=== PATIENT | female | born 1990 | race Caucasian/White ===

== ENCOUNTER → 2016-08-22 | Outpatient (REF) | payer BC | LOC: M LAB REF 12:29 | PROVIDERS: ATTEND Physician Assistant | DX: J02.9 Acute pharyngitis, unspecified (principal) ==

== ENCOUNTER → 2016-08-24 | Outpatient (CLI) | payer BC | LOC: M WUC 11:32 | PROVIDERS: ATTEND Physician Assistant | DX: J02.9 Acute pharyngitis, unspecified (principal); R53.83 Other fatigue ==

== ENCOUNTER 2016-12-18 17:09 | Emergency (ER) | payer BC, MEDICAID ==
[~2016-12-18] VITALS: Ht 162.6 cm; Wt 56.8 kg
[2016-12-18] MEDS ORDERED: ONDANSETRON 4MG/2ML VIAL (J2405) IV ONE (19:00)
[2016-12-18] MEDS ORDERED: KETOROLAC 30 MG/ML VIAL (J1885) IV ONE (19:00)
[2016-12-18] MEDS ORDERED: NS 1,000 ML IV ONE (19:00)
[2016-12-18 19:26] LABS: BASO # 0.2 K/mm3 (0.0-0.2); BASO % 1.4 % (0.0-1.0); EOS # 0.1 K/mm3 (0.0-0.50); EOS % 0.9 % (0.0-3.0); LARGE UNSTAINED CELL # 0.1 K/mm3 (0.0-0.4); LARGE UNSTAINED CELL % 1.3 % (0.0-4.0); LYMPH # 3.7 K/mm3 (1.5-6.5); LYMPH % 35.1 % (24.0-44.0); MEAN CORPUSCULAR HEMOGLOBIN 31.3 pg (27.0-33.0); MEAN CORPUSCULAR HGB CONC 34.2 g/dl (32.0-36.5); MEAN CORPUSCULAR VOLUME 91.6 fl (80.0-96.0); MONO # 0.5 K/mm3 (0.0-0.8); MONO % 4.8 % (0.0-5.0); NEUTROPHILS # 5.8 K/mm3 (1.8-7.7); NEUTROPHILS % 56.4 % (36.0-66.0); PLATELET COUNT, AUTOMATED 269 k/mm3 (150-450); RED CELL DISTRIBUTION WIDTH 12.3 % (11.5-14.5); WHITE BLOOD COUNT 10.3 K/mm3 (4.0-10.0)
--- NOTE | 2016-12-18 20:20 | REP ---
Pelvic sonogram: History: Right inguinal mass. Right pelvic discomfort. The patient feels a lump in the right lower quadrant. Findings: Transabdominal scanning demonstrates a normal sized uterus with dimensions of 6.0 x 3.3 x 5.0 cm. Endometrial echo is 0.1 cm in thickness and centrally placed. No focal uterine mass is seen. Scanning in the area where the patient feels a lump shows a normal right ovary with dimensions of 2.7 x 1.9 x 2.0 cm. Its Doppler flow is normal with resistive index 0.62. The left ovary is normal as well measuring 3.3 x 2.5 x 2.4 cm. Its Doppler flow is normal with resistive index 0.53. Impression: Normal pelvic sonography. Scanning in the area where the patient feels a lump reveals only normal right ovary. Signed by Ralph Collins MD 12/19/2016 07:54 A
[2016-12-18 20:48] LABS: ANION GAP 4 MEQ/L (8-16); BLOOD UREA NITROGEN 16 MG/DL (7-18); CALCIUM LEVEL 8.6 MG/DL (8.5-10.1); CARBON DIOXIDE LEVEL 27 MEQ/L (21-32); CHLORIDE LEVEL 109 MEQ/L (98-107); CREATININE FOR GFR 0.61 MG/DL (0.55-1.02); GLOMERULAR FILTRATION RATE > 60.0 (>60); GLUCOSE, FASTING 75 MG/DL (70-105); POTASSIUM SERUM 3.6 MEQ/L (3.5-5.1); SODIUM LEVEL 140 MEQ/L (136-145)
[2016-12-18] MEDS ORDERED: GASTROGRAFIN SOLUTION 30ML PO ONE (21:35)
[2016-12-18] MEDS ORDERED: GASTROGRAFIN SOLUTION 30ML (Q9963) PO ONE (22:05)
[2016-12-18] MEDS ORDERED: ISOVUE-370 76% 100ML VIAL (Q9967) As Ordered ONE (22:40)
--- NOTE | 2016-12-18 23:40 | REPUSA ---
CT of the abdomen and pelvis with contrast Clinical statement: Pain. Technique: Multiple axial CT images were obtained from the base of the lungs through the floor of the pelvis utilizing 5 mm axial slices after administration of oral and nonionic intravenous contrast. C oronal and sagittal reconstructions were also obtained. No comparison is available. Findings: Chest: The visualized lung bases are clear. Abdomen: The liver, spleen, pancreas, kidneys, gallbladder, and adrenal glands are unremarkable. The aorta is within normal limits. There is no evidence of abdominal lymphadenopathy or ascites. Pelvis: The bowel is unremarkable, with no obstructive or inflammatory changes. The visualized portio ns of the appendix are unremarkable. The urinary bladder is within normal limits. The other pelvic st ructures appear grossly intact. There is no evidence of pelvic lymphadenopathy or ascites. Bones: There are no suspicious osseous abnormalities seen. Impression: Unremarkable CT examination of the abdomen and pelvis.
[2016-12-19 00:06] VITALS: BP 120/75
== END 2016-12-19 00:10 | disposition home or self-care (01) ==
LOC: M ED 17:09
DX: R10.31 Right lower quadrant pain (principal); Z87.891 Personal history of nicotine dependence; Z88.6 Allergy status to analgesic agent
CPT/HCPCS: 36415; 74177; 76856; 80048; 81001; 81025; 85025; 93976; 96374; 96375; 99284; J1885; J2405; Q9963; Q9967

== ENCOUNTER → 2017-01-01 | Outpatient (CLI) | payer OTHER ==
[2017-01-01 10:42] LABS: MEAN CORPUSCULAR HEMOGLOBIN 32.2 pg (27.0-33.0); MEAN CORPUSCULAR HGB CONC 34.5 g/dl (32.0-36.5); MEAN CORPUSCULAR VOLUME 93.4 fl (80.0-96.0); RED CELL DISTRIBUTION WIDTH 12.2 % (11.5-14.5); WHITE BLOOD COUNT 6.9 K/mm3 (4.0-10.0)
[2017-01-01 11:13] LABS: ALBUMIN 4.2 GM/DL (3.2-5.2); ALBUMIN/GLOBULIN RATIO 1.31 (1.00-1.93); ALKALINE PHOSPHATASE 61 U/L (45-117); ALT/SGPT 18 U/L (12-78); ANION GAP 5 MEQ/L (8-16); AST/SGOT 9 U/L (15-37); BILIRUBIN,TOTAL 0.6 MG/DL (0.2-1.0); BLOOD UREA NITROGEN 12 MG/DL (7-18); CALCIUM LEVEL 8.9 MG/DL (8.5-10.1); CARBON DIOXIDE LEVEL 29 MEQ/L (21-32); CHLORIDE LEVEL 107 MEQ/L (98-107); CHOLESTEROL LEVEL 123 MG/DL (<200); CREATININE FOR GFR 0.55 MG/DL (0.55-1.02); GLOMERULAR FILTRATION RATE > 60.0 (>60); GLUCOSE, FASTING 75 MG/DL (70-105); SODIUM LEVEL 141 MEQ/L (136-145); TOTAL PROTEIN 7.4 GM/DL (6.4-8.2); TRIGLYCERIDES LEVEL 83 MG/DL (<150)
== END ==
LOC: M LAB 09:41
PROVIDERS: ATTEND Family Medicine
DX: D64.9 Anemia, unspecified (principal); R53.83 Other fatigue

== ENCOUNTER → 2017-01-17 | Outpatient (CLI) | payer OTHER ==
[2017-01-17 12:03] LABS: MEAN CORPUSCULAR HEMOGLOBIN 31.3 pg (27.0-33.0); MEAN CORPUSCULAR HGB CONC 34.3 g/dl (32.0-36.5); MEAN CORPUSCULAR VOLUME 91.1 fl (80.0-96.0); RED CELL DISTRIBUTION WIDTH 12.3 % (11.5-14.5); WHITE BLOOD COUNT 7.9 K/mm3 (4.0-10.0)
[2017-01-17 12:34] LABS: ESTRADIOL 80.6 PG/ML; FOLLICLE STIMULATING HORMONE 7.4 mIU/mL; LUTEINIZING HORMONE 7.7 mIU/mL
--- NOTE | 2017-01-17 13:21 | REP ---
PELVIC ULTRASOUND: Real-time sonographic evaluation of the pelvis performed utilizing transabdominal technique. Urinary bladder measures 10.0 x 4.5 x 9.5 cm. Uterus measures 7.3 x 2.8 x 4.8 cm. Endometrial thickness is 3 mm with no endometrial fluid collection. The ovaries are normal in size and echotexture, right ovary measuring 4.1 x 2.1 x 3.1 cm and left ovary 3.2 x 2.5 x 3.7 cm. There is no adnexal mass or free fluid. Reportedly there is a palpable abnormality in the region of the right lower quadrant abdominal wall. No sonographic abnormality is seen in this region. IMPRESSION: Essentially negative pelvic ultrasound as above. Signed by Jah Paredes MD 01/17/2017 05:03 P
== END ==
LOC: M LAB 10:15 → M RAD 10:15
PROVIDERS: ATTEND Family Medicine
DX: R10.31 Right lower quadrant pain (principal); D64.9 Anemia, unspecified

== ENCOUNTER → 2017-02-28 | Outpatient (REF) | payer OTHER | LOC: M SFHCWAGY 10:59 | PROVIDERS: ATTEND Nurse Practitioner Women's Health | DX: Z12.4 Encounter for screening for malignant neoplasm of cervix (principal); R87.613 High grade squamous intraepithelial lesion on cytologic smear of cervix (HGSIL) ==

== ENCOUNTER → 2017-02-28 | Outpatient (REF) | payer OTHER | LOC: M SFHCPLAZ 13:28 | PROVIDERS: ATTEND Nurse Practitioner Women's Health | DX: Z11.3 Encounter for screening for infections with a predominantly sexual mode of transmission (principal) ==

== ENCOUNTER → 2017-03-18 | Outpatient (REF) | payer OTHER | LOC: M SFHCWAGY 15:41 | PROVIDERS: ATTEND Nurse Practitioner Women's Health | DX: R87.613 High grade squamous intraepithelial lesion on cytologic smear of cervix (HGSIL) (principal) ==

== ENCOUNTER 2017-04-18 21:15 | Day surgery (SDC) | payer OTHER ==
[~2017-04-18] VITALS: Ht 162.6 cm; Wt 56.8 kg
[2017-04-18] MEDS ORDERED: XANA0.5T PO (21:19)
[2017-04-18] MEDS ORDERED: NS 1,000 ML IV ONE (22:00)
[2017-04-18] MEDS ORDERED: PATIENT COMMENT (22:58)
[2017-04-18] MEDS ORDERED: LR 1,000 ML IV SCH (23:00)
[2017-04-18 23:13] LABS: MEAN CORPUSCULAR HEMOGLOBIN 31.4 pg (27.0-33.0); MEAN CORPUSCULAR HGB CONC 34.5 g/dl (32.0-36.5); MEAN CORPUSCULAR VOLUME 90.9 fl (80.0-96.0); PLATELET COUNT, AUTOMATED 298 10^3/uL (150-450); RED CELL DISTRIBUTION WIDTH 11.8 % (11.5-14.5); WHITE BLOOD COUNT 13.1 10^3/uL (4.0-10.0)
[2017-04-18 23:14] LABS: ADD MANUAL DIFFER YES; DIFF SLIDE NUMBER 339; POSITIVE DIFF POS FLAG
[2017-04-18] MEDS ORDERED: MIDAZOLAM INJ 2 MG/2 ML VIAL (J2250) As Ordered ONE (23:27)
[2017-04-18 23:52] LABS: BASOPHILS 1 % (0-4)
[2017-04-19] MEDS ORDERED: CHLOROPROCAINE 2 % INJ PRES.FREE 20 ML VIAL (J2400) As Ordered ONE (00:25)
[2017-04-19] MEDS ORDERED: KETOROLAC 60 MG/2 ML VIAL (J1885) As Ordered ONE ×2 (00:31→00:42)
[2017-04-19] MEDS ORDERED: ONDANSETRON 4MG/2ML VIAL (J2405) As Ordered ONE ×3 (00:31→01:04)
[2017-04-19] MEDS ORDERED: HYDROmorphone HCL 1 MG/ML SYRINGE (J1170) IV PRN (01:00)
[2017-04-19] MEDS ORDERED: LR 1,000 ML IV SCH ×2 (01:00→01:30)
[2017-04-19] MEDS ORDERED: fentaNYL 100 MCG/2 ML INJECTION (J3010) IV PRN (01:00)
[2017-04-19] MEDS ORDERED: PERCOCET 5MG/325MG TAB PO PRN ×3 (01:00→01:30)
[2017-04-19] MEDS ORDERED: ONDANSETRON 4MG/2ML VIAL (J2405) IV PRN ×2 (01:00→01:30)
[2017-04-19] MEDS ORDERED: KETOROLAC 30 MG/ML VIAL (J1885) IV PRN (01:45)
[2017-04-19 01:55] VITALS: BP 106/57
[2017-04-19 02:25] VITALS: BP 113/67
[2017-04-19 03:25] VITALS: BP 122/68
[2017-04-19] MEDS ORDERED: IBUP1TAB7 PO (04:01)
[2017-04-19 04:10] VITALS: BP 117/64
[2017-04-19] MEDS ORDERED: SPRI28TA PO (09:00)
[2017-04-19] MEDS ORDERED: DOCUSATE SODIUM 100 MG CAP PO SCH (09:00)
--- NOTE | 2017-04-19 12:02 | RO ---
DATE OF PROCEDURE: 04/19/2017 PREPROCEDURE DIAGNOSIS: Cervical hemorrhage. POSTPROCEDURE DIAGNOSIS: Cervical hemorrhage. PROCEDURE: Exam under anesthesia with placement of sutures to the cervix for hemostasis. SURGEON: Dr. Jemal Gu DEPUTY CORONER: ANESTHESIA: Spinal. ESTIMATED BLOOD LOSS: Minimal. URINE OUTPUT: 200 mL. FINDINGS: Multiple bleeding areas from the cervix. The patient is status post loop electrosurgical excision procedure (LEEP) procedure 8 days ago. The bleeding did not respond to application of Monsel solution in the emergency room. DESCRIPTION OF PROCEDURE: The patient taken to the operating room where spinal anesthesia was induced. She was prepped and draped in a sterile fashion in the dorsal lithotomy position. A speculum was placed in the vagina and the anterior lip of the cervix was grasped with a tenaculum. Three [id number] sutures of #2-0 Vicryl were placed through the cervical stroma at 12 -o'clock, 3 -o'clock and 6 positions. Good hemostasis was obtained. There was no further bleeding. The speculum was removed. The bladder was emptied with a catheter. Sponge, needle counts and instrument counts are correct.
== END 2017-04-19 04:14 | disposition home or self-care (01) ==
LOC: M ED 21:15 → M SDC 22:30 → M PED 04-19 01:48 → M SDC 04-19 04:14
PROVIDERS: ATTEND Specialist
DX: N93.8 Other specified abnormal uterine and vaginal bleeding (principal)

== ENCOUNTER → 2017-08-13 | Outpatient (CLI) | payer OTHER ==
[2017-08-13 09:28] LABS: HEMATOCRIT 35.3 % (36.0-47.0); MEAN CORPUSCULAR HEMOGLOBIN 30.5 pg (27.0-33.0); MEAN CORPUSCULAR VOLUME 89.8 fl (80.0-96.0); PLATELET COUNT, AUTOMATED 240 10^3/uL (150-450); RED BLOOD COUNT 3.93 10^6/uL (4.00-5.40); RED CELL DISTRIBUTION WIDTH 12.1 % (11.5-14.5); WHITE BLOOD COUNT 8.5 10^3/uL (4.0-10.0)
[2017-08-13 10:04] LABS: ALBUMIN 3.9 GM/DL (3.2-5.2); ALKALINE PHOSPHATASE 52 U/L (45-117); ALT/SGPT 18 U/L (12-78); ANION GAP 7 MEQ/L (8-16); AST/SGOT 7 U/L (7-37); BILIRUBIN,TOTAL 0.5 MG/DL (0.2-1.0); BLOOD UREA NITROGEN 15 MG/DL (7-18); CALCIUM LEVEL 8.5 MG/DL (8.5-10.1); CARBON DIOXIDE LEVEL 27 MEQ/L (21-32); CHLORIDE LEVEL 108 MEQ/L (98-107); CHOLESTEROL LEVEL 108 MG/DL (<200); CREATININE FOR GFR 0.58 MG/DL (0.55-1.30); GLOMERULAR FILTRATION RATE > 60.0 (>60); GLUCOSE, FASTING 75 MG/DL (70-100); HDL CHOLESTEROL 59 MG/DL (>40); IRON (FE) 90 UG/DL (50-170); LDL CHOLESTEROL 33.6 MG/DL (<100); NON-HDL-C 49 MG/DL; PERCENT SATURATION 26.7 % (13.2-45.0); POTASSIUM SERUM 4.3 MEQ/L (3.5-5.1); SODIUM LEVEL 142 MEQ/L (136-145); THYROXINE (T4) 8.2 UG/DL (4.5-12.0); TOTAL IRON BINDING CAPACITY 337 UG/DL (250-450); TOTAL PROTEIN 6.9 GM/DL (6.4-8.2); TRIGLYCERIDES LEVEL 77 MG/DL (<150)
[2017-08-13 10:51] LABS: TOTAL 25(OH) VITAMIN D 35.4 NG/ML (30.0-100.0); TOTAL T3 85.2 NG/DL (60.0-181.0)
[2017-08-13 10:52] LABS: VITAMIN B12 LEVEL 264 PG/ML (247-911)
== END ==
LOC: M LAB 08:34
DX: D64.9 Anemia, unspecified (principal); R53.83 Other fatigue; E03.9 Hypothyroidism, unspecified
CPT/HCPCS: 83550

== ENCOUNTER → 2017-08-26 | Outpatient (CLI) | payer OTHER ==
[2017-08-26 09:51] LABS: CONTROL LINE MONO INT CTR LINE PRESENT; MONO SCRN NEGATIVE (NEGATIVE)
[2017-08-26 10:09] LABS: VITAMIN B12 LEVEL 319 PG/ML
[2017-08-26 10:10] LABS: FOLATE 14.5 NG/ML
[2017-08-27 14:13] LABS: Lyme Disease IgG/IgM Antibodie <0.91 ISR (0.00-0.90); Lyme Disease IgM Ab Quantitati <0.80 index (0.00-0.79)
== END ==
LOC: M LAB 08:24
DX: R53.83 Other fatigue (principal)
CPT/HCPCS: 82746

== ENCOUNTER → 2017-09-03 | Outpatient (CLI) | payer OTHER | LOC: M RAD 17:41 | DX: R42 Dizziness and giddiness (principal) | CPT/HCPCS: 70551 ==

== ENCOUNTER 2017-09-05 09:31 | Emergency (ER) | payer OTHER ==
[2017-09-05 11:12] LABS: BASO # 0.1 10^3/uL (0.0-0.2); BASO % 0.6 % (0.0-1.0); EOS # 0.1 10^3/uL (0.0-0.50); EOS % 0.5 % (0.0-3.0); HEMATOCRIT 44.9 % (36.0-47.0); HEMOGLOBIN 15.2 g/dl (12.0-15.5); IMMATURE GRANULOCYTE % 0.3 % (0-3.0); LYMPH # 3.4 10^3/uL (1.5-6.5); LYMPH % 31.1 % (24.0-44.0); MEAN CORPUSCULAR HEMOGLOBIN 31.2 pg (27.0-33.0); MEAN CORPUSCULAR HGB CONC 33.9 g/dl (32.0-36.5); MEAN CORPUSCULAR VOLUME 92.2 fl (80.0-96.0); MONO # 0.7 10^3/uL (0.0-0.8); MONO % 6.1 % (0.0-5.0); NEUTROPHILS # 6.7 10^3/uL (1.8-7.7); NEUTROPHILS % 61.4 % (36.0-66.0); PLATELET COUNT, AUTOMATED 289 10^3/uL (150-450); RED BLOOD COUNT 4.87 10^6/uL (4.00-5.40); RED CELL DISTRIBUTION WIDTH 12.5 % (11.5-14.5); WHITE BLOOD COUNT 10.9 10^3/uL (4.0-10.0)
[2017-09-05 11:40] LABS: CONTROL LINE MONO RF C INT CTR LINE PRESENT; MONO REFLEX EBV COMP NEGATIVE (NEGATIVE)
[2017-09-05 12:27] LABS: ANION GAP 7 MEQ/L (8-16); BLOOD UREA NITROGEN 15 MG/DL (7-18); CALCIUM LEVEL 9.6 MG/DL (8.5-10.1); CARBON DIOXIDE LEVEL 28 MEQ/L (21-32); CHLORIDE LEVEL 106 MEQ/L (98-107); GLOMERULAR FILTRATION RATE > 60.0 (>60); GLUCOSE, FASTING 83 MG/DL (70-100); POTASSIUM SERUM 4.7 MEQ/L (3.5-5.1); SODIUM LEVEL 141 MEQ/L (136-145)
[2017-09-06 11:20] LABS: HIV 1&2 SCREEN CENTAUR NEGATIVE (NEGATIVE)
[2017-09-07 00:08] LABS: EBV VIRAL CAPSID AG IgM <36.0 U/mL (0.0-35.9)
[2017-09-10 00:06] LABS: ANA (HEP2) Negative (.)
[2017-09-10 00:06] LABS: BARTONELLA DNA PCR Negative (Negative)
== END 2017-09-05 12:51 | disposition home or self-care (01) ==
LOC: M ED 09:31
DX: R59.1 Generalized enlarged lymph nodes (principal); F41.9 Anxiety disorder, unspecified; Z79.3 Long term (current) use of hormonal contraceptives
CPT/HCPCS: 71046

== ENCOUNTER → 2017-09-17 | Outpatient (REF) | payer OTHER | LOC: M LAB REF 17:31 | DX: Z12.4 Encounter for screening for malignant neoplasm of cervix (principal) ==

== ENCOUNTER → 2017-09-17 | Outpatient (REF) | payer OTHER ==
[2017-09-17 15:18] LABS: CHLAMYDIA DNA AMPLIFICATION NEGATIVE (NEGATIVE); GC DNA AMPLIFICATION NEGATIVE (NEGATIVE)
== END ==
LOC: M LAB REF 12:55
DX: Z11.3 Encounter for screening for infections with a predominantly sexual mode of transmission (principal)

== ENCOUNTER → 2017-09-19 | Outpatient (CLI) | payer OTHER ==
[~2017-09-19] MED LIST: GASTROGRAFIN SOLUTION 30ML (Q9963) As Ordered; ISOVUE-370 76% 100ML VIAL (Q9967) As Ordered
== END ==
LOC: M RAD 16:26
DX: R10.11 Right upper quadrant pain (principal)
CPT/HCPCS: Q9963

== ENCOUNTER → 2017-09-26 | Outpatient (CLI) | payer OTHER | LOC: M RAD 12:17 | DX: R22.1 Localized swelling, mass and lump, neck (principal) | CPT/HCPCS: 76536 ==

== ENCOUNTER → 2017-10-08 | Outpatient (CLI) | payer OTHER | LOC: M RAD 14:46 | DX: R19.03 Right lower quadrant abdominal swelling, mass and lump (principal) | CPT/HCPCS: 76856 ==

== ENCOUNTER → 2017-10-17 | Outpatient (CLI) | payer OTHER ==
[~2017-10-17] MED LIST changes: -GASTROGRAFIN SOLUTION 30ML (Q9963) As Ordered; -ISOVUE-370 76% 100ML VIAL (Q9967) As Ordered; +LIDOCAINE 1% MDV 20ML VIAL As Ordered
== END ==
LOC: M RADPRO 10:41
DX: R59.0 Localized enlarged lymph nodes (principal); F41.9 Anxiety disorder, unspecified; Z86.2 Personal history of diseases of the blood and blood-forming organs and certain disorders involving the immune mechanism; Z79.899 Other long term (current) drug therapy; Z87.891 Personal history of nicotine dependence
CPT/HCPCS: 10022

== ENCOUNTER → 2018-04-01 | Outpatient (CLI) | payer OTHER ==
[2018-04-01 14:01] LABS: BASO # 0.1 10^3/uL (0.0-0.2); BASO % 0.5 % (0.0-1.0); EOS # 0.1 10^3/uL (0.0-0.50); EOS % 0.6 % (0.0-3.0); HEMATOCRIT 39.4 % (36.0-47.0); HEMOGLOBIN 13.5 g/dl (12.0-15.5); IMMATURE GRANULOCYTE % 0.4 % (0-3.0); LYMPH # 2.7 10^3/uL (1.5-6.5); LYMPH % 23.8 % (24.0-44.0); MEAN CORPUSCULAR HEMOGLOBIN 31.8 pg (27.0-33.0); MEAN CORPUSCULAR HGB CONC 34.3 g/dl (32.0-36.5); MEAN CORPUSCULAR VOLUME 92.7 fl (80.0-96.0); MONO # 0.8 10^3/uL (0.0-0.8); MONO % 7.1 % (0.0-5.0); NEUTROPHILS # 7.6 10^3/uL (1.8-7.7); NEUTROPHILS % 67.6 % (36.0-66.0); PLATELET COUNT, AUTOMATED 262 10^3/uL (150-450); RED BLOOD COUNT 4.25 10^6/uL (4.00-5.40); RED CELL DISTRIBUTION WIDTH 11.7 % (11.5-14.5); WHITE BLOOD COUNT 11.2 10^3/uL (4.0-10.0)
[2018-04-01 15:56] LABS: CHLAMYDIA DNA AMPLIFICATION NEGATIVE (NEGATIVE); GC DNA AMPLIFICATION NEGATIVE (NEGATIVE)
[2018-04-02 11:09] LABS: HBsAg Prenatal NEGATIVE (NEGATIVE); HIV 1&2 SCREEN CENTAUR NEGATIVE (NEGATIVE); RUBELLA IgG QUALITATIVE IMMUNE (IMMUNE)
[2018-04-02 11:09] LABS: HEPATITIS C VIRUS ABY INDEX < 0.0 INDEX (<0.8)
== END ==
LOC: M SMT 10:37
DX: Z36.89 Encounter for other specified antenatal screening (principal)
CPT/HCPCS: 86762

== ENCOUNTER → 2018-05-29 | Outpatient (REF) | payer OTHER ==
[~2018-05-29] MED LIST changes: +IBUP1TAB7 PO; -LIDOCAINE 1% MDV 20ML VIAL As Ordered; +PATIENT COMMENT; +PREN1TAB11 PO; +SPRI28TA PO; +XANA0.5T PO
[2018-05-31 15:11] LABS: HPV HYBRID CAPTURE II Negative (Negative)
== END ==
LOC: M LAB REF 12:31
PROVIDERS: ATTEND Obstetrics & Gynecology
DX: Z87.410 Personal history of cervical dysplasia (principal)

== ENCOUNTER 2018-06-12 09:45 | Emergency (ER) | payer OTHER ==
[~2018-06-12] VITALS: Ht 165.1 cm; Wt 56.8 kg
[~2018-06-12 09:45] MED LIST changes: -PREN1TAB11 PO
[2018-06-12] MEDS ORDERED: PREN1TAB11 PO (09:54)
[2018-06-12 10:30] LABS: HEMATOCRIT 34.9 % (36.0-47.0); HEMOGLOBIN 12.2 g/dl (12.0-15.5); MEAN CORPUSCULAR VOLUME 91.6 fl (80.0-96.0); PLATELET COUNT, AUTOMATED 245 10^3/uL (150-450); RED BLOOD COUNT 3.81 10^6/uL (4.00-5.40); WHITE BLOOD COUNT 11.8 10^3/uL (4.0-10.0)
[2018-06-12 10:37] LABS: INR 0.93; PROTHROMBIN TIME 12.6 SECONDS (12.1-14.4)
[2018-06-12 10:38] LABS: PARTIAL THROMBOPLASTIN TIME 28.1 SECONDS (25.4-37.6)
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
[2018-06-12 11:32] VITALS: BP 107/62
[2018-06-12] MEDS ORDERED: ACETAMINOPHEN TAB 650MG DOSE (2X325MG) PO ONE (11:45)
== END 2018-06-12 11:55 | disposition home or self-care (01) ==
LOC: M ED 09:45
DX: R10.9 Unspecified abdominal pain (principal); O99.342 Other mental disorders complicating pregnancy, second trimester; Z3A.18 18 weeks gestation of pregnancy; V43.52XA Car driver injured in collision with other type car in traffic accident, initial encounter; Y92.410 Unspecified street and highway as the place of occurrence of the external cause; Y93.9 Activity, unspecified; Y99.9 Unspecified external cause status; Z79.899 Other long term (current) drug therapy

== ENCOUNTER → 2018-07-01 | Outpatient (CLI) | payer OTHER ==
[~2018-07-01] MED LIST changes: +PREN1TAB11 PO
--- NOTE | 2018-07-01 19:39 | REP ---
Obstetric ultrasound for anatomy: There is a single intrauterine gestation in a vertex presentation. There is movement and cardiac activity. The heart rate is 150 - 168 beats per minute. The placenta is anterior without previa or abruptio and is grade zero. The amniotic fluid volume subjectively is normal. The cervix measures 3.4 cm length. By today's ultrasound the gestational age is 21 weeks 2 days with an FRANKC of 11/09/2018. By the first ultrasound gestational age is 21 weeks 1 day with an FRANCK of 11/10/2018. By LMP the gestational age is 21 weeks 2 days with an FRANCK of 11/09/1930. weight is 428 grams ( 0 pounds, 50 ounces). This is the 53rd percentile for 21 weeks 2 days. The following anatomic structures are identified and are unremarkable: Intracranial lateral ventricles, choroid plexus, cavum septum pellucidum, cerebellum, facial profile, upper lip, lungs, four-chamber heart, cardiac right and left ventricular outflow tracts, diaphragm, stomach, cord insertion, three-vessel cord, kidneys, bladder, spine and upper lower extremities. No anomalies are identified. Electronically Signed by Jah Arteaga MD 07/01/2018 07:31 P
== END ==
LOC: M RAD 15:52
PROVIDERS: ATTEND Obstetrics & Gynecology
DX: Z34.82 Encounter for supervision of other normal pregnancy, second trimester (principal); Z36.89 Encounter for other specified antenatal screening; Z3A.21 21 weeks gestation of pregnancy

== ENCOUNTER → 2018-07-30 | Outpatient (CLI) | payer OTHER ==
[2018-07-30 13:15] LABS: HEMATOCRIT 37.8 % (36.0-47.0); HEMOGLOBIN 12.6 g/dl (12.0-15.5); MEAN CORPUSCULAR HGB CONC 33.3 g/dl (32.0-36.5); MEAN CORPUSCULAR VOLUME 95.9 fl (80.0-96.0); PLATELET COUNT, AUTOMATED 266 10^3/uL (150-450); RED BLOOD COUNT 3.94 10^6/uL (4.00-5.40); WHITE BLOOD COUNT 13.6 10^3/uL (4.0-10.0)
== END ==
LOC: M SMT 08:39
PROVIDERS: ATTEND Obstetrics & Gynecology
DX: Z34.82 Encounter for supervision of other normal pregnancy, second trimester (principal)

== ENCOUNTER → 2018-08-26 | Outpatient (CLI) | payer OTHER ==
--- NOTE | 2018-08-26 13:44 | REP ---
OBSTETRIC SONOGRAPHY: HISTORY: Size less than dates. 29 weeks. FINDINGS: Scanning demonstrates a viable single intrauterine gestation in a cephalic lie. motion is observed and heart rate is recorded at 132 beats per minute. An anterior grade 0 placenta is seen without evidence of previa or abruption. Amniotic fluid is subjectively normal. Closed cervical length measured transabdominally is 3.5 cm. No extrauterine abnormalities observed. There has been appropriate interval growth. No anomaly is seen. The following anatomic structures are again identified and felt to be unremarkable: cranium, choroid plexus, cavum, cerebellum and posterior fossa, face and profile, lungs, four-chamber heart with left and right ventricular outflow tract views, diaphragm, left-sided stomach, abdominal wall cord insertion, three-vessel cord, kidneys and bladder, spine. Biometry Chart: BPD 7.7 cm = 31 weeks 0 days HC 27.2 cm = 29 weeks 5 days AC 24.9 cm = 29 weeks 1 day FL 5.6 cm = 29 weeks 2 days HL 5.0 cm = 29 weeks 2 days HC/AC ratio normal 1.09 Cephalic index normal 0.81. Estimated weight 1376 grams, 3 pounds 0 ounces, 43rd percentile for 29 weeks 2 days. STEVEN 8.4 cm. S/D ratio normal 2.85. IMPRESSION: Viable single intrauterine gestation at 29 weeks 5 days by today's composite criteria. Expected gestational age estimate based on prior sonography is 29 weeks 1 day. FRANCK by prior sonography November 10, 2018. There has been appropriate interval growth. Electronically Signed by Ralph Collins MD 08/26/2018 03:03 P
== END ==
LOC: M RAD 09:01
PROVIDERS: ATTEND Obstetrics & Gynecology
DX: O26.843 Uterine size-date discrepancy, third trimester (principal); Z3A.29 29 weeks gestation of pregnancy

== ENCOUNTER 2018-10-05 06:09 | Outpatient (CLI) | payer OTHER ==
[~2018-10-05] VITALS: Ht 162.6 cm; Wt 67.5 kg
[2018-10-05 06:27] VITALS: BP 113/77
[2018-10-05] MEDS ORDERED: MACR50CA10 PO (06:50)
[2018-10-05 07:51] VITALS: BP 118/79
== END 2018-10-05 08:20 | disposition home or self-care (01) ==
LOC: M LDO 06:09
PROVIDERS: ATTEND Specialist
DX: O99.89 Other specified diseases and conditions complicating pregnancy, childbirth and the puerperium (principal); Z3A.34 34 weeks gestation of pregnancy; O23.43 Unspecified infection of urinary tract in pregnancy, third trimester

== ENCOUNTER → 2018-10-14 | Outpatient (REF) | payer OTHER ==
[~2018-10-14] MED LIST changes: +MACR50CA10 PO; +TUMS500C PO
== END ==
LOC: M LAB REF 17:44
PROVIDERS: ATTEND Obstetrics & Gynecology
DX: O47.03 False labor before 37 completed weeks of gestation, third trimester (principal)

== ENCOUNTER 2018-10-17 18:39 | Outpatient (CLI) | payer OTHER ==
[~2018-10-17] VITALS: Ht 167.6 cm; Wt 69.0 kg
[~2018-10-17 18:39] MED LIST changes: -TUMS500C PO
[2018-10-17] MEDS ORDERED: TUMS500C PO (18:49)
[2018-10-17 18:57] VITALS: BP 120/73
[2018-10-17 19:01] VITALS: BP 122/75
[2018-10-17 20:25] VITALS: BP 118/68
== END 2018-10-17 21:55 | disposition home or self-care (01) ==
LOC: M LDO 18:39
PROVIDERS: ATTEND Advanced Practice Midwife
DX: O47.03 False labor before 37 completed weeks of gestation, third trimester (principal); Z3A.36 36 weeks gestation of pregnancy

== ENCOUNTER → 2018-10-17 | Outpatient (REF) | payer OTHER | LOC: M LAB REF 17:18 | PROVIDERS: ATTEND Advanced Practice Midwife | DX: O47.03 False labor before 37 completed weeks of gestation, third trimester (principal); Z3A.00 Weeks of gestation of pregnancy not specified ==

== ENCOUNTER → 2018-10-30 | Outpatient (CLI) | payer OTHER ==
[~2018-10-30] MED LIST changes: +TUMS500C PO
== END ==
LOC: M SMT 09:25
PROVIDERS: ATTEND Advanced Practice Midwife
DX: Z34.83 Encounter for supervision of other normal pregnancy, third trimester (principal); Z3A.00 Weeks of gestation of pregnancy not specified

== ENCOUNTER 2018-11-06 08:48 | Inpatient (IN) | payer OTHER ==
[2018-11-06] VITALS (36 sets, daily range): BP systolic 103–163; BP diastolic 51–127
[~2018-11-06] VITALS: Ht 162.6 cm; Wt 72.7 kg
[2018-11-06] MEDS ORDERED: LACTATED RINGER'S 1000 ML IV STA (09:11)
[2018-11-06 09:28] LABS: HEMATOCRIT 36.4 % (36.0-47.0); HEMOGLOBIN 12.7 g/dl (12.0-15.5); MEAN CORPUSCULAR HEMOGLOBIN 32.6 pg (27.0-33.0); MEAN CORPUSCULAR HGB CONC 34.9 g/dl (32.0-36.5); MEAN CORPUSCULAR VOLUME 93.6 fl (80.0-96.0); PLATELET COUNT, AUTOMATED 236 10^3/uL (150-450); RED BLOOD COUNT 3.89 10^6/uL (4.00-5.40); WHITE BLOOD COUNT 14.7 10^3/uL (4.0-10.0)
--- NOTE | 2018-11-06 09:40 | NUR ---
L&D H&P HPI: 28 year old at 39+2 weeks estimated gestation. Expected date of confinement: 11/11/2018. dated by a first trimester ultrasound. Presents today with complaint of ruptured membranes and painful uterine contractions, and found to be 4 cm dilated in the office today. Denies vaginal bleeding, loss of fluid, or uterine contractions. Reports regular movement. course uncomplicated. labs: Blood type O-,. RhoGAM administered at 28 weeks on 08/25/2018 , antibody screen negative, rubella immune, VDRL nonreactive , hepatitis B surface antigen negative, HIV negative, hepatitis C antibody negative, GC/CT negative, aneuploidy/maternal serum screening: Offered but declined, 1 hour glucose challenge test: 90, GBS negative. Vaccinations: Tdap 09/25/2018 Radiology/OB US: no anomalies or placental abnormalities detected. History Past medical history: None Surgical history: D&C, LEEP, tonsillectomy Medications: vitamins Allergies: NKDA CONFIGURATION DEVELOPER history: Cervical dysplasia/LOBO 3. LEEP with positive margins. Pap and HPV negative during this . No chlamydia, gonorrhea, HSV OB history: G1, 2009 , miscarriage at 10 weeks. D&C. G2, December 2013, 40 week , 6 lbs. 12 oz. Social history: No tobacco, alcohol or drug use Family history: None reported Objective Vitals: Normotensive, normal heart rate, afebrile Heart: Regular rate and rhythm. No murmurs, rubs or gallops. Lungs: Clear to auscultation bilaterally. No wheezes, crackles, rales or rhonchi. Abdomen: Uterine fundal height consistent with dates. No guarding or rebound tenderness. Extremities: No clubbing, cyanosis or edema. Normal deep tendon reflexes. Sterile vaginal exam: 5 cm, 90 %effacement, -2 station, cephalic, grossly ruptured. Clear fluid External monitoring: heart rate category 1 Tocodynamometer: contractions occurring every 2-4 minutes Assessment/Plan 28 year old at 39+2 weeks gestation. Diagnosis: Active labor, ruptured membranes. Reassuring and maternal status. -Admit to labor and delivery with routine labs and orders -External monitoring and tocodynamometer -Pediatrics and anesthesia consultations as needed. -Augment labor with Pitocin as needed Dr. Neo Busby, DO, FACOG
[2018-11-06] MEDS ORDERED: FENTANYL 2MCG/ML ROPIVACAINE 0.2% IN 0.9% NACL 100ML IVBAG As Ordered ONE (09:54)
[2018-11-06] MEDS: LR 1,000 ML IV SCH ×2 (10:16→15:28)
[2018-11-06] MEDS ORDERED: NALOXONE INJ 0.4 MG/1 ML VIAL (J2310) IV PRN (11:30)
[2018-11-06] MEDS ORDERED: FENTANYL/ROPIVACAINE/NACL BAG 100 ML EPIDURAL SCH (11:30)
[2018-11-06] MEDS ORDERED: REFRIGERATOR IV KEYS XX PRN (11:30)
[2018-11-06] MEDS ORDERED: ONDANSETRON 4MG/2ML VIAL (J2405) IV PRN ×2 (11:30→17:30)
[2018-11-06] MEDS ORDERED: EPIDURAL COMMENT XX SCH (11:30)
[2018-11-06] MEDS ORDERED: LACTATED RINGER'S 1000 ML IV PRN (11:30)
[2018-11-06] MEDS ORDERED: diphenhydrAMINE INJ 50MG/ML VIAL (J1200) IV PRN (11:30)
[2018-11-06] MEDS ORDERED: ePHEDrine SULFATE 25 MG/5 ML(5MG/ML) SYRINGE IV PRN (11:30)
[2018-11-06] MEDS ORDERED: EPIDURAL/PCA KEYS XX PRN (11:30)
[2018-11-06] MEDS ORDERED: OXYTOCIN 30 UNITS IN 0.9% NaCl 500ML IV BAG (J2590) As Ordered ONE (12:27)
[2018-11-06] MEDS ORDERED: OXYTOCIN DRIP 30 UNITS in APPROPRIATE DILUENT 1 EA IV SCH ×2 (12:30→17:18)
--- NOTE | 2018-11-06 14:36 | NUR ---
Progress Note Pt comfortable with epidural. No heavy VB VSS,afebrile, normal HR EFM: Cat I [place]: ctxs every 2-4 min SVE: 6/100/0, clear fluid A/P: Active phase of labor. Reassuring maternal and status. -Repeat SVE in 2-4 hours or sooner PRN. Summer Busby DO
--- NOTE | 2018-11-06 17:17 | NUR ---
Delivery note Spontaneous vaginal delivery Estimated gestational age at delivery: 39+2 weeks The active phase and second stage of labor progressed in normal fashion with epidural anesthesia. Patient received Pitocin labor augmentation. The head delivered left occiput anterior and restituted left occiput transverse. A tight nuchal cord was noted. The anterior shoulder delivered with gentle downward guidance and the remainder of the body delivered with ease. The nuchal cord was reduced. Cord clamping was delayed for approximately 1 minute after delivery. After doubly clamping the cord, I allowed the FOB to cut the cord. The was placed on the patient's chest for immediate bonding. data: Apgars 8 and 9. weight 3680 grams 8 pounds, 2 ounces. Time of delivery: 1651. Sex: Male. The third stage of labor was actively managed with a bolus of IV Pitocin (30 units in 500 mL of normal saline). The placenta delivered completely intact with no missing cotyledons at 1655. A three-vessel cord with a central insertion was noted. After delivery of the placenta, the uterine fundus was approximately 2 cm below the umbilicus and firm. IV Pitocin was continued to maintain uterine tone. A normal, low level of uterine bleeding was noted. The cervix, vagina, vulva and perineum were inspected for lacerations. A second degree laceration was noted. This was repaired with 3-0 Vicryl in typical fashion. A periurethral laceration was also noted and repaired with 4-0 Vicryl. Excellent hemostasis was noted. Estimated blood loss: 200ml. All sponges, needles, and instruments were accounted for per [employer]GER OPERATOR department protocol. Neo Busby D.O., F.Curtis.Caleb.
[2018-11-06] MEDS ORDERED: LR 1,000 ML IV SCH (17:18)
[2018-11-06] MEDS ORDERED: ACETAMINOPHEN TAB 650MG DOSE (2X325MG) PO PRN (17:30)
[2018-11-06] MEDS ORDERED: IBUPROFEN 600 MG TAB PO PRN (17:30)
[2018-11-06] MEDS ORDERED: MEASLES,MUMPS,RUBELLA VACCINE INJ (MMR-II) (90707) SC SCH (17:30)
[2018-11-06] MEDS ORDERED: PROMETHAZINE 25 MG TAB PO PRN (17:30)
[2018-11-06] MEDS ORDERED: DIBUCAINE 1% OINTMENT 30GM TOP PRN (17:30)
[2018-11-06] MEDS ORDERED: DOCUSATE SODIUM 100 MG CAP PO PRN (17:30)
[2018-11-06] MEDS ORDERED: RHOGAM 300 MCG (1500 IU) INJ (J2790) IM SCH (17:30)
[2018-11-06] MEDS: IBUPROFEN 800 MG TAB PO PRN (18:55)
[2018-11-06] MEDS: ACETAMINOPHEN 500 MG TAB PO PRN (20:33)
[2018-11-07] MEDS: IBUPROFEN 800 MG TAB PO PRN ×2 (04:53→12:24)
[2018-11-07 05:55] VITALS: BP 100/52
--- NOTE | 2018-11-07 07:43 | NUR ---
Day 1 Status post , uncomplicated Subjective Pain is well controlled. Lochia decreasing and minimal. Voiding spontaneously. Tolerating a regular diet. Ambulating without any assistance. Denies any subjective fever/chills/nausea/vomiting/headache/visual changes/shortness of breath/chest pain. Breast feeding. Objective Vitals: Normotensive, normal heart rate, afebrile, adequate urine output. Heart: regular, rate, and rhythm. no murmurs/gallops/rubs Lungs: clear to auscultation bilaterally, no wheezes/crackles/rales/ronchi Abd: soft, nontender, nondistended, uterine fundus is 2cm below umbilicus and firm Ext: no significant edema, nontender, negative Lou's bilaterally. Assessment/Plan: day 1. Recovering well. Hemodynamically stable, afebrile, good pain control. -Routine care -Discharge to home later today -Routine infectious, fever, pain, and bleeding precautions reviewed Rani Mendez.Renay., F.A.C.O.G.
[2018-11-07] MEDS: ACETAMINOPHEN 500 MG TAB PO PRN (08:16)
[2018-11-07] MEDS ORDERED: IBUP-1022 PO (08:21)
[2018-11-07] MEDS ORDERED: PRENATAL VITAMINS CHEWABLE TABLET PO SCH (09:00)
== END 2018-11-07 18:00 | disposition home or self-care (01) | DRG 560 ==
LOC: M LDI 08:48 → M OBS 19:35
PROVIDERS: ADMIT Obstetrics & Gynecology; ATTEND Obstetrics & Gynecology
PROC: 10E0XZZ Delivery of Products of Conception, External Approach (ICD-10-PCS; principal; 2018-11-06)
PROC: 0KQM0ZZ Repair Perineum Muscle, Open Approach (ICD-10-PCS; 2018-11-06)
DX: O69.82X0 Labor and delivery complicated by other cord entanglement, without compression, not applicable or unspecified (principal); O70.1 Second degree perineal laceration during delivery; Z37.0 Single live birth; Z3A.39 39 weeks gestation of pregnancy

== ENCOUNTER → 2018-11-29 | Outpatient (CLI) | payer OTHER ==
[~2018-11-29] MED LIST changes: +IBUP-1022 PO
[2018-11-29 08:54] LABS: HEMOGLOBIN 13.3 g/dl (12.0-15.5); MEAN CORPUSCULAR HEMOGLOBIN 30.8 pg (27.0-33.0); MEAN CORPUSCULAR HGB CONC 33.3 g/dl (32.0-36.5); MEAN CORPUSCULAR VOLUME 92.6 fl (80.0-96.0); PLATELET COUNT, AUTOMATED 263 10^3/uL (150-450); RED BLOOD COUNT 4.32 10^6/uL (4.00-5.40); WHITE BLOOD COUNT 7.7 10^3/uL (4.0-10.0)
[2018-11-29 09:24] LABS: ALBUMIN 3.7 GM/DL (3.2-5.2); ALT/SGPT 22 U/L (12-78); BILIRUBIN,TOTAL 0.6 MG/DL (0.2-1.0); BLOOD UREA NITROGEN 15 MG/DL (7-18); CALCIUM LEVEL 8.7 MG/DL (8.5-10.1); CARBON DIOXIDE LEVEL 27 MEQ/L (21-32); CHLORIDE LEVEL 108 MEQ/L (98-107); CHOLESTEROL LEVEL 157 MG/DL (<200); CHOLESTEROL RISK RATIO 2.573 (<5); GLOMERULAR FILTRATION RATE > 60.0 (>60); GLUCOSE, FASTING 78 MG/DL (70-100); HDL CHOLESTEROL 61 MG/DL (>40); IRON (FE) 106 UG/DL (50-170); LDL CHOLESTEROL 80 MG/DL (<100); NON-HDL-C 96 MG/DL; PERCENT SATURATION 33.3 % (13.2-45.0); SODIUM LEVEL 141 MEQ/L (136-145); THYROID STIMULATING HORMONE 0.396 uIU/ML (0.358-3.740); TOTAL IRON BINDING CAPACITY 318 UG/DL (250-450); TOTAL PROTEIN 6.7 GM/DL (6.4-8.2); TRIGLYCERIDES LEVEL 78 MG/DL (<150)
[2018-11-29 10:01] LABS: HEMOGLOBIN A1c 5.1 %
[2018-12-01 10:21] LABS: TOTAL 25(OH) VITAMIN D 32.4 NG/ML (30.0-100.0)
[2018-12-01 10:23] LABS: TOTAL T3 83.4 NG/DL (60.0-181.0)
== END ==
LOC: M LAB 08:12
PROVIDERS: ATTEND Family Medicine
DX: D64.9 Anemia, unspecified (principal); R53.83 Other fatigue; E03.9 Hypothyroidism, unspecified

== ENCOUNTER → 2019-01-09 | Outpatient (REF) | payer OTHER ==
[2019-01-09 13:03] LABS: APPEARANCE, URINE CLOUDY (CLEAR); BACTERIA, URINE AUTO 1+ (NEGATIVE); BILIRUBIN, URINE AUTO NEGATIVE (NEGATIVE); BLOOD, URINE BLOOD 3+ (NEGATIVE); COLOR, URINE YELLOW (YELLOW); GLUCOSE, URINE (UA) AUTO NEGATIVE (NEGATIVE); KETONE, URINE AUTO NEGATIVE (NEGATIVE); LEUKOCYTE ESTERASE, URINE AUTO NEGATIVE (NEGATIVE); MUCUS, URINE SMALL (NEGATIVE); NITRITE, URINE AUTO NEGATIVE (NEGATIVE); PROTEIN, URINE AUTO 1+ mg/dL (NEGATIVE); RBC, URINE AUTO 36 /HPF (0-3); SPECIFIC GRAVITY URINE AUTO 1.018 (1.002-1.035); SQUAMOUS EPITHELIAL CELL UR AU 16 /HPF (0-6); UROBILINOGEN, URINE AUTO 0.2 mg/dL (0.0-2.0); WBC, URINE AUTO 14 /HPF (0-3)
== END ==
LOC: M LAB REF 12:20
PROVIDERS: ATTEND Physician Assistant
DX: N39.0 Urinary tract infection, site not specified (principal)

== ENCOUNTER → 2019-06-01 | Outpatient (CLI) | payer OTHER ==
[2019-06-01 08:40] LABS: HEMATOCRIT 37.7 % (36.0-47.0); HEMOGLOBIN 12.6 g/dl (12.0-15.5); MEAN CORPUSCULAR HGB CONC 33.4 g/dl (32.0-36.5); MEAN CORPUSCULAR VOLUME 92.9 fl (80.0-96.0); PLATELET COUNT, AUTOMATED 253 10^3/uL (150-450); RED BLOOD COUNT 4.06 10^6/uL (4.00-5.40); WHITE BLOOD COUNT 8.6 10^3/uL (4.0-10.0)
[2019-06-01 09:19] LABS: ALBUMIN 3.8 GM/DL (3.2-5.2); ALT/SGPT 16 U/L (12-78); BILIRUBIN,TOTAL 0.4 MG/DL (0.2-1.0); BLOOD UREA NITROGEN 11 MG/DL (7-18); CALCIUM LEVEL 8.6 MG/DL (8.5-10.1); CARBON DIOXIDE LEVEL 24 MEQ/L (21-32); CHLORIDE LEVEL 108 MEQ/L (98-107); CHOLESTEROL LEVEL 149 MG/DL (<200); CHOLESTEROL RISK RATIO 2.568 (<5); CREATININE FOR GFR 0.61 MG/DL (0.55-1.30); GLOMERULAR FILTRATION RATE > 60.0 (>60); GLUCOSE, FASTING 89 MG/DL (70-100); HDL CHOLESTEROL 58 MG/DL (>40); LDL CHOLESTEROL 58 MG/DL (<100); NON-HDL-C 91 MG/DL; SODIUM LEVEL 142 MEQ/L (136-145); THYROXINE (T4) 11.9 UG/DL (4.5-12.0); TOTAL PROTEIN 6.8 GM/DL (6.4-8.2); TRIGLYCERIDES LEVEL 163 MG/DL (<150)
[2019-06-01 11:16] LABS: TOTAL 25(OH) VITAMIN D 24.7 NG/ML (30.0-100.0)
[2019-06-01 11:17] LABS: TOTAL T3 125.4 NG/DL (60.0-181.0)
== END ==
LOC: M LAB 07:18
PROVIDERS: ATTEND Family Medicine
DX: D64.9 Anemia, unspecified (principal)

== ENCOUNTER → 2019-06-05 | Outpatient (REF) | payer OTHER | LOC: M SFHCWAGY 18:55 | PROVIDERS: ATTEND Obstetrics & Gynecology | DX: Z12.4 Encounter for screening for malignant neoplasm of cervix (principal); Z87.410 Personal history of cervical dysplasia ==

== ENCOUNTER → 2019-07-16 | Outpatient (REF) | payer OTHER | LOC: M LAB REF 18:33 | PROVIDERS: ATTEND Dermatology | DX: D49.2 Neoplasm of unspecified behavior of bone, soft tissue, and skin (principal) ==

== ENCOUNTER 2020-01-31 07:30 | Emergency (ER) | payer OTHER ==
[~2020-01-31] VITALS: Ht 162.6 cm; Wt 56.2 kg
[2020-01-31] MEDS ORDERED: NITR100C2 PO (07:37)
[2020-01-31] MEDS ORDERED: NS 1,000 ML IV ONE (08:00)
[2020-01-31 08:19] LABS: BASO % 0.2 % (0.0-1.0); EOS # 0.1 10^3/uL (0.0-0.5); EOS % 0.8 % (0.0-3.0); HEMATOCRIT 37.1 % (36.0-47.0); HEMOGLOBIN 12.5 g/dl (12.0-15.5); LYMPH # 2.1 10^3/uL (1.5-5.0); LYMPH % 23.4 % (24.0-44.0); MEAN CORPUSCULAR HEMOGLOBIN 31.6 pg (27.0-33.0); MEAN CORPUSCULAR HGB CONC 33.7 g/dl (32.0-36.5); MEAN CORPUSCULAR VOLUME 93.9 fl (80.0-96.0); MONO # 0.5 10^3/uL (0.0-0.8); MONO % 5.2 % (0.0-5.0); NEUTROPHILS # 6.3 10^3/uL (1.5-8.5); PLATELET COUNT, AUTOMATED 270 10^3/uL (150-450); RED BLOOD COUNT 3.95 10^6/uL (4.00-5.40)
[2020-01-31 08:45] LABS: ALBUMIN 3.7 GM/DL (3.2-5.2); BILIRUBIN,DIRECT 0.1 MG/DL (0.0-0.2); BILIRUBIN,TOTAL 0.3 MG/DL (0.2-1.0); TOTAL PROTEIN 7.2 GM/DL (6.4-8.2)
[2020-01-31] MEDS ORDERED: KETOROLAC 30 MG/ML 1ML VIAL IV ONE (08:45)
[2020-01-31] MEDS ORDERED: MIRA3350 PO (10:29)
[2020-01-31] MEDS ORDERED: COLA100C5 PO (10:29)
[2020-01-31 10:45] VITALS: BP 128/81
--- NOTE | 2020-02-29 07:18 | REP ---
CT OF THE ABDOMEN AND PELVIS WITHOUT CONTRAST CLINICAL: Left flank pain x1 week. TECHNIQUE: Axial noncontrast images from the lung bases to the pubic symphysis with coronal and sagittal reformations. COMPARISON: 09/19/2017 FINDINGS: Lung bases are clear. Visualized heart and pericardium normal. Liver, spleen, pancreas, gallbladder, bilateral adrenal glands, and kidneys are normal. No perinephric stranding, hydroureteronephrosis, intrarenal or obstructing ureteral calculi identified. The enteric system demonstrates moderate to significant diffuse fecal stasis suggesting constipation. Scattered colonic diverticula noted without acute diverticulitis. No evidence for bowel obstruction. Normal terminal ileum and appendix identified in the right lower quadrant. Pelvis demonstrates normal bladder and age-appropriate uterus/adnexa. No ascites. No free air. No adenopathy. Abdominal aorta without aneurysm. Musculoskeletal structures without acute osseous abnormality. IMPRESSION: * Moderate to significant diffuse fecal stasis possibly related to patient's symptoms. * No further acute abdominopelvic pathology appreciated. MTDD
== END 2020-01-31 10:48 | disposition home or self-care (01) ==
LOC: M ED 07:30
DX: K59.00 Constipation, unspecified (principal)
CPT/HCPCS: 74176; 80047; 80076; 81001; 83690; 84702; 85025; 96361; 96374; 99284; J1885

== ENCOUNTER → 2020-02-26 | Outpatient (REF) | payer OTHER ==
[~2020-02-26] MED LIST changes: +COLA100C5 PO; +MIRA3350 PO; +NITR100C2 PO
[2020-02-26 14:27] LABS: AMORPHOUS SEDIMENT SMALL (NEGATIVE); APPEARANCE, URINE HAZY (CLEAR); BACTERIA, URINE AUTO 1+ (NEGATIVE); BILIRUBIN, URINE AUTO NEGATIVE (NEGATIVE); BLOOD, URINE BLOOD 2+ (NEGATIVE); COLOR, URINE YELLOW (YELLOW); GLUCOSE, URINE (UA) AUTO NEGATIVE (NEGATIVE); KETONE, URINE AUTO 1+ mg/dL (NEGATIVE); LEUKOCYTE ESTERASE, URINE AUTO NEGATIVE (NEGATIVE); MUCUS, URINE SMALL (NEGATIVE); NITRITE, URINE AUTO NEGATIVE (NEGATIVE); PROTEIN, URINE AUTO NEGATIVE (NEGATIVE); RBC, URINE AUTO 3 /HPF (0-3); SPECIFIC GRAVITY URINE AUTO 1.025 (1.002-1.035); SQUAMOUS EPITHELIAL CELL UR AU 4 /HPF (0-6); UROBILINOGEN, URINE AUTO 0.2 mg/dL (0.0-2.0); WBC, URINE AUTO 3 /HPF (0-3)
== END ==
LOC: M SMT 13:12
PROVIDERS: ATTEND Nurse Practitioner Family
DX: N39.0 Urinary tract infection, site not specified (principal)

== ENCOUNTER → 2020-04-01 | Outpatient (CLI) | payer OTHER | LOC: M LABSMTC 10:03 | PROVIDERS: ATTEND Anesthesiology | DX: Z01.812 Encounter for preprocedural laboratory examination (principal); Z20.828 Contact with and (suspected) exposure to other viral communicable diseases | CPT/HCPCS: C9803; U0003 ==

== ENCOUNTER 2020-04-06 08:17 | Day surgery (SDC) | payer OTHER ==
[~2020-04-06] VITALS: Ht 162.6 cm; Wt 56.6 kg
[~2020-04-06 08:17] MED LIST changes: +LR 1,000 ML IV SCH
[2020-04-06 08:46] LABS: HEMATOCRIT 42.4 % (36.0-47.0); HEMOGLOBIN 13.7 g/dl (12.0-15.5); MEAN CORPUSCULAR HEMOGLOBIN 29.8 pg (27.0-33.0); MEAN CORPUSCULAR HGB CONC 32.3 g/dl (32.0-36.5); MEAN CORPUSCULAR VOLUME 92.4 fl (80.0-96.0); PLATELET COUNT, AUTOMATED 274 10^3/uL (150-450); RED BLOOD COUNT 4.59 10^6/uL (4.00-5.40); WHITE BLOOD COUNT 7.6 10^3/uL (4.0-10.0)
[2020-04-06] MEDS ORDERED: SCOPOLAMINE 1MG TRANSDERMAL PATCH As Ordered ONE (09:18)
[2020-04-06 09:22] LABS: HCG, SERUM QUALITATIVE NEGATIVE (NEGATIVE)
[2020-04-06] MEDS ORDERED: BUPIVACAINE HCL 0.25% 10ML VIAL As Ordered ONE (09:38)
[2020-04-06] MEDS ORDERED: LIDOCAINE 2% 100MG/5ML SDV (FOR ANES.) As Ordered ONE (09:38)
[2020-04-06] MEDS ORDERED: propofoL 200 MG/20 ML VIAL As Ordered ONE (09:38)
[2020-04-06] MEDS ORDERED: MIDAZOLAM INJ 2MG/2ML VIAL (J2250 PER 1MG) As Ordered ONE (09:38)
[2020-04-06] MEDS ORDERED: SILVER NITRATE APPLICATOR As Ordered ONE (09:38)
[2020-04-06] MEDS ORDERED: fentaNYL 100 MCG/2 ML INJECTION (J3010) As Ordered ONE ×2 (09:38→10:44)
[2020-04-06] MEDS ORDERED: ROCURONIUM BROMIDE 50 MG/5 ML VIAL As Ordered ONE (09:38)
[2020-04-06] MEDS ORDERED: SCOPOLAMINE 1MG TRANSDERMAL PATCH TOP ONE (09:45)
[2020-04-06] MEDS ORDERED: ONDANSETRON 4MG/2ML VIAL As Ordered ONE (10:36)
[2020-04-06] MEDS ORDERED: SUGAMMADEX SODIUM 500 MG/5 ML VIAL (BRIDION) As Ordered ONE (10:36)
[2020-04-06] MEDS ORDERED: KETOROLAC 60MG 2ML VIAL As Ordered ONE (10:36)
[2020-04-06] MEDS ORDERED: dexameTHASONE 4 MG/ML 1ML VIAL (J1100 PER 1MG) As Ordered ONE (10:36)
--- NOTE | 2020-04-06 11:02 | ROOPDOC ---
[facility] Report Of Operation Report of Operation Date of procedure: 04/06/2020 Preoperative diagnosis: Satisfied parity. Postoperative diagnosis: Same Procedure: Laparoscopic bilateral salpingectomy Anesthesia: Gen. endotracheal Estimated blood loss 10 mL IV fluids replaced 800 mL lactated Ringer's Drains: In and out catheter 100 mL of urine Complications: None Preoperative antibiotics: None indicated Specimens: Bilateral fallopian tubes Intraoperative findings: Normal size, shape, contour of the uterus. Normal adnexa/ovaries bilaterally. Minimal pelvic adhesions Procedure: The patient was counseled and consented on the risks, benefits, indications, and alternatives of the procedure. Informed consent was obtained. She was taken to the operating room with an IV running. She was placed on the operating table in the dorsal supine position. Gen. anesthesia was administered and the airway was secured without any difficulty. A timeout was performed per protocol. She was prepared and draped in the normal sterile fashion. Attention was turned to the pelvis. The bladder was drained with in and out sterile catheter. A speculum was placed into the vagina with good visualization of the cervix. A single- tooth tenaculum was placed on the anterior lip of the cervix and downward traction was applied. The cervix was sequentially dilated with Marques dilators up to a #16. A ZUMI uterine manipulator was placed without any difficulty. The single-tooth tenaculum was removed. The tenaculum sites were noted to be hemostatic. A sterile glove switch was performed. Attention was turned to the abdomen. A 5mm umbilical incision was made with the 11 blade. Through this incision, a Veress needle was placed into the intraperitoneal cavity. Intraperitoneal placement was confirmed with ease of flow of normal saline, a positive drop test and no return on aspiration. The opening pressure was 2 mmHg. The abdomen was insufflated with 2 L of CO2. The Veress needle was removed. A 5 mm laparoscopic trocar was placed under direct visualization without any difficulty, and intraperitoneal placement was confirmed. No incidental bleeding or injury was evident. The patient was placed in steep Trendelenburg. 2 additional laparoscopic port sites were placed through 5 mm incisions in the lower left quadrant. Each trocar/cannula was placed under direct visualization without any difficulty, incidental bleeding or injury. Attention was turned to the right fallopian tube. The right fallopian tube was followed out to the fimbriated end, grasped and elevated. The underlying mesosalpinx was sequentially clamped, coagulated and transected, until the level of the cornu was reached. At this level, the fallopian tube was clamped, coagulated and transected, thus amputating the fallopian tube. The fallopian tube was brought through the cannula without any difficulty and sent to pathology for permanent section. Attention was turned to the left fallopian tube. The left fallopian tube was followed out to the fimbriated end, grasped and elevated. The underlying mesosalpinx was sequentially clamped, coagulated and transected, until the level of the cornu was reached. At this level the fallopian tube was clamped, coagulated and transected, thus amputating the fallopian tube. The fallopian tube was brought to the cannula without any difficulty and sent to pathology for permanent section. Both right and left surgical sites were noted to be completely hemostatic. The gas was released from the abdomen. The patient was taken out of Trendelenburg position. The cannulas were removed. The skin incisions were closed with 4-0 Monocryl in subcuticular fashion and reinforced with Dermabond. The uterine manipulator was removed, the vagina was noted to be clear of any sponge or instrument. Sponge, needle and instrument counts were correct per protocol. The patient tolerated the entire procedure very well. She was transferred to the PACU in good and stable condition. DO FABIOLA Blakely JONATHAN R. DO Apr 06, 2020 11:02
[2020-04-06] MEDS ORDERED: IBUP1TAB7 PO (11:07)
[2020-04-06] MEDS: fentaNYL 100 MCG/2 ML INJECTION (J3010) IV PRN ×2 (11:26→11:31)
[2020-04-06] MEDS ORDERED: oxyCODONE 5MG TAB PO PRN (11:30)
[2020-04-06] MEDS ORDERED: LR 1,000 ML IV SCH (11:30)
[2020-04-06] MEDS ORDERED: ONDANSETRON 4MG/2ML VIAL IV PRN (11:30)
[2020-04-06] MEDS ORDERED: METOCLOPRAMIDE INJ 10MG/2ML VIAL (J2765 PER 1) IV PRN (11:30)
[2020-04-06 12:55] VITALS: BP 119/77
== END 2020-04-06 12:55 | disposition home or self-care (01) ==
LOC: M SDC 08:17
PROVIDERS: ATTEND Obstetrics & Gynecology
DX: Z30.2 Encounter for sterilization (principal); D64.9 Anemia, unspecified; F41.9 Anxiety disorder, unspecified
CPT/HCPCS: 36415; 58661; 84703; 85027; 86850; 88302; J1100; J1885; J2250; J2405; J3010

== ENCOUNTER → 2020-04-21 | Outpatient (REF) | payer OTHER ==
[~2020-04-21] MED LIST changes: -LR 1,000 ML IV SCH
== END ==
LOC: M SFHCWAGY 10:01
PROVIDERS: ATTEND Obstetrics & Gynecology
DX: N39.0 Urinary tract infection, site not specified (principal)

== ENCOUNTER → 2020-05-15 | Outpatient (CLI) | payer OTHER ==
[~2020-05-15] MED LIST changes: +MACR100C43 PO; +SFHIBU200 PO
== END ==
LOC: M LABSMTC 10:08
PROVIDERS: ATTEND Anesthesiology
DX: Z11.59 Encounter for screening for other viral diseases (principal)

== ENCOUNTER 2020-05-20 06:09 | Day surgery (SDC) | payer OTHER ==
[~2020-05-20] VITALS: Ht 162.6 cm; Wt 58.1 kg
[~2020-05-20 06:09] MED LIST changes: +LR 1,000 ML IV ONE; +ceFAZolin SOD 2 GM in IV 1 EA IV ONE
[2020-05-20] MEDS ORDERED: propofoL 200 MG/20 ML VIAL As Ordered ONE (07:14)
[2020-05-20] MEDS ORDERED: LIDOCAINE 2% 100MG/5ML SDV (FOR ANES.) As Ordered ONE (07:14)
[2020-05-20] MEDS ORDERED: fentaNYL 100 MCG/2 ML INJECTION (J3010) As Ordered ONE ×2 (07:15→08:45)
[2020-05-20] MEDS ORDERED: MIDAZOLAM INJ 2MG/2ML VIAL (J2250 PER 1MG) As Ordered ONE (07:15)
[2020-05-20] MEDS ORDERED: SCOPOLAMINE 1MG TRANSDERMAL PATCH As Ordered ONE (07:21)
[2020-05-20] MEDS ORDERED: SCOPOLAMINE 1MG TRANSDERMAL PATCH TOP ONE (07:30)
[2020-05-20] MEDS ORDERED: dexameTHASONE 4 MG/ML 1ML VIAL (J1100 PER 1MG) As Ordered ONE (07:55)
[2020-05-20] MEDS ORDERED: KETOROLAC 60MG 2ML VIAL As Ordered ONE (07:59)
[2020-05-20] MEDS ORDERED: ONDANSETRON 4MG/2ML VIAL As Ordered ONE (07:59)
[2020-05-20] MEDS ORDERED: METOCLOPRAMIDE INJ 10MG/2ML VIAL (J2765 PER 1) As Ordered ONE (08:05)
[2020-05-20] MEDS ORDERED: BUPIVACAINE HCL 0.5% 30 ML VIAL As Ordered ONE (08:05)
[2020-05-20] MEDS ORDERED: CIPR-250 PO (08:45)
[2020-05-20] MEDS ORDERED: PYRI1TAB5 PO (08:45)
[2020-05-20] MEDS ORDERED: PERCOCET 5MG/325MG TAB As Ordered ONE (08:45)
[2020-05-20] MEDS ORDERED: MEPERIDINE INJ 25 MG/ML VIAL (J2175) IV PRN (09:00)
[2020-05-20] MEDS ORDERED: fentaNYL 100 MCG/2 ML INJECTION (J3010) IV PRN (09:00)
[2020-05-20] MEDS ORDERED: PERCOCET 5MG/325MG TAB PO PRN (09:00)
[2020-05-20] MEDS ORDERED: LR 1,000 ML IV SCH (09:00)
[2020-05-20] MEDS ORDERED: METOCLOPRAMIDE INJ 10MG/2ML VIAL (J2765 PER 1) IV PRN (09:00)
[2020-05-20] MEDS ORDERED: PHENAZOPYRIDINE 100 MG TAB PO PRN (09:00)
[2020-05-20] MEDS ORDERED: ONDANSETRON 4MG/2ML VIAL IV PRN (09:00)
[2020-05-20] MEDS ORDERED: PHENAZOPYRIDINE 100 MG TAB As Ordered ONE (09:06)
[2020-05-20 09:35] VITALS: BP 112/74
--- NOTE | 2020-05-20 11:49 | RO ---
OPERATIVE NOTE DATE OF OPERATION: 05/20/2020 PREOPERATIVE DIAGNOSIS: Bladder pain. POSTOPERATIVE DIAGNOSIS: Interstitial cystitis. PROCEDURE: Cystoscopy with hydrodistention and bladder biopsy. SURGEON: Tom Alvarenga MD ANESTHESIA: General. INDICATIONS: This 29-year-old lady has had irritative voiding symptoms that have not responded to antibiotics and cultures have been negative. She has had multiple visits to urgent care and cultures have been negative on multiple occasions. CT scan negative. PROCEDURE: After obtaining informed consent from the patient, she was taken to the operating room, provided adequate anesthetic; she was prepped and draped in usual manner. The 22-Thai diagnostic cystoscope was advanced into the bladder and the bladder inspected with 30 and 70-degree lenses. The bladder was filled at 20 cm pressure with capacity of 800 mL noted. Upon emptying multiple glomerulations and Hunner's ulcers were noted. Saloon Keeper bladder biopsy was obtained using cold-cup biopsy forceps. Hemostasis was obtained with electrocautery. Multiple ulcers and glomerulations were also fulgurated. The bladder was emptied and 20 mL of 0.5% Marcaine plain was instilled. The patient went to recovery in satisfactory condition. DISPOSITION: She is dismissed home on Pyridium 200 three times a day, Ibuprofen 800 mg three times a day, Cipro 250 twice daily. Diet as tolerated. Activity light. Warm soaks three times daily. Tums three times daily. Follow up in 3-4 weeks. There were no complications. Estimated blood loss less than 20 mL.
== END 2020-05-20 10:00 | disposition home or self-care (01) ==
LOC: M SDC 06:09
PROVIDERS: ATTEND Urology
DX: N30.10 Interstitial cystitis (chronic) without hematuria (principal); Z98.51 Tubal ligation status
CPT/HCPCS: 52204; 52260; 88305; J0690; J1100; J1885; J2250; J2405; J2765; J3010

== ENCOUNTER → 2020-05-25 | Outpatient (REF) | payer OTHER ==
[~2020-05-25] MED LIST changes: +CIPR-250 PO; -LR 1,000 ML IV ONE; +PYRI1TAB5 PO; -ceFAZolin SOD 2 GM in IV 1 EA IV ONE
[2020-05-25 13:59] LABS: APPEARANCE, URINE CLEAR (CLEAR); BACTERIA, URINE AUTO 1+ (NEGATIVE); BILIRUBIN, URINE AUTO NEGATIVE (NEGATIVE); BLOOD, URINE BLOOD 2+ (NEGATIVE); COLOR, URINE AMBER (YELLOW); GLUCOSE, URINE (UA) AUTO NEGATIVE (NEGATIVE); KETONE, URINE AUTO NEGATIVE (NEGATIVE); LEUKOCYTE ESTERASE, URINE AUTO 1+ (NEGATIVE); MUCUS, URINE SMALL (NEGATIVE); NITRITE, URINE AUTO POSITIVE (NEGATIVE); PROTEIN, URINE AUTO NEGATIVE (NEGATIVE); RBC, URINE AUTO 10 /HPF (0-3); SQUAMOUS EPITHELIAL CELL UR AU 0 /HPF (0-6); WBC, URINE AUTO 22 /HPF (0-3)
== END ==
LOC: M SMT 13:38
PROVIDERS: ATTEND Nurse Practitioner Family
DX: R30.0 Dysuria (principal)

== ENCOUNTER 2020-06-13 13:58 | Emergency (ER) | payer OTHER ==
[~2020-06-13] VITALS: Ht 162.6 cm; Wt 59.4 kg
[2020-06-13] MEDS ORDERED: NS 1,000 ML IV ONE (14:30)
[2020-06-13 15:01] LABS: BASO % 0.4 % (0.0-1.0); EOS # 0.1 10^3/uL (0.0-0.5); HEMATOCRIT 38.6 % (36.0-47.0); HEMOGLOBIN 12.4 g/dl (12.0-15.5); LYMPH # 3.9 10^3/uL (1.5-5.0); LYMPH % 41.1 % (24.0-44.0); MEAN CORPUSCULAR HEMOGLOBIN 30.5 pg (27.0-33.0); MEAN CORPUSCULAR HGB CONC 32.1 g/dl (32.0-36.5); MEAN CORPUSCULAR VOLUME 95.1 fl (80.0-96.0); MONO # 0.6 10^3/uL (0.0-0.8); MONO % 6.2 % (0.0-5.0); NEUTROPHILS # 4.8 10^3/uL (1.5-8.5); NEUTROPHILS % 51.1 % (36.0-66.0); PLATELET COUNT, AUTOMATED 276 10^3/uL (150-450); RED BLOOD COUNT 4.06 10^6/uL (4.00-5.40); WHITE BLOOD COUNT 9.5 10^3/uL (4.0-10.0)
[2020-06-13] MEDS ORDERED: ONDANSETRON 4MG/2ML VIAL IV ONE (15:15)
[2020-06-13 15:17] LABS: INR 0.93; PROTHROMBIN TIME 12.6 SECONDS (12.5-14.3)
[2020-06-13 15:18] LABS: PARTIAL THROMBOPLASTIN TIME 27.6 SECONDS (24.2-38.5)
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
--- NOTE | 2020-06-13 15:23 | REP ---
INDICATION: heavy vag bleeding COMPARISON: None. TECHNIQUE: Transabdominal pelvic ultrasound with color Doppler evaluation of the ovaries. FINDINGS: Bladder is collapsed. Normal anteverted uterus measures 7.1 x 3.0 x 4.9 cm. The endometrial complex measures 3.1 mm thickness. No discrete uterine or endometrial abnormalities are appreciated. Bilateral ovaries are normal in appearance and vascularity without evidence for torsion. Right ovary measures 2.3 x 3.5 x 1.5 cm; R I = 0.59. Left ovary measures 2.0 x 3.2 x 2.7 cm; R I = 0.5. No pelvic fluid or adnexal mass lesion IMPRESSION: Normal pelvic ultrasound <Electronically signed by Fernando Gracia > 06/13/20 [id number]
[2020-06-13 15:26] LABS: ALT/SGPT 19 U/L (12-78); BLOOD UREA NITROGEN 10 MG/DL (7-18); CALCIUM LEVEL 9.1 MG/DL (8.5-10.1); CARBON DIOXIDE LEVEL 25 MEQ/L (21-32); CHLORIDE LEVEL 108 MEQ/L (98-107); CREATININE FOR GFR 0.62 MG/DL (0.55-1.30); GLOMERULAR FILTRATION RATE > 60.0 (>60); GLUCOSE, FASTING 81 MG/DL (70-100); POTASSIUM SERUM 3.9 MEQ/L (3.5-5.1); SODIUM LEVEL 141 MEQ/L (136-145)
[2020-06-13 15:27] LABS: ALBUMIN 4.6 GM/DL (3.2-5.2); BILIRUBIN,DIRECT 0.2 MG/DL (0.0-0.2); BILIRUBIN,TOTAL 0.6 MG/DL (0.2-1.0); LIPASE 89 U/L (73-393); TOTAL PROTEIN 7.5 GM/DL (6.4-8.2)
[2020-06-13 16:48] VITALS: BP 117/70
== END 2020-06-13 16:49 | disposition home or self-care (01) ==
LOC: M ED 13:58
DX: N92.0 Excessive and frequent menstruation with regular cycle (principal); R51.9 Headache, unspecified
CPT/HCPCS: 36415; 76856; 80048; 80076; 81001; 83690; 85025; 85610; 85730; 86850; 86900; 86901; 87086; 93976; 96361; 96374; 99284; J2405

== ENCOUNTER → 2020-07-25 | Outpatient (REF) | payer OTHER ==
[2020-07-25 11:19] LABS: HEMOGLOBIN 12.8 g/dl (12.0-15.5); MEAN CORPUSCULAR HEMOGLOBIN 30.7 pg (27.0-33.0); MEAN CORPUSCULAR HGB CONC 32.8 g/dl (32.0-36.5); MEAN CORPUSCULAR VOLUME 93.5 fl (80.0-96.0); PLATELET COUNT, AUTOMATED 260 10^3/uL (150-450); RED BLOOD COUNT 4.17 10^6/uL (4.00-5.40); WHITE BLOOD COUNT 7.8 10^3/uL (4.0-10.0)
== END ==
LOC: M PLALAB 08:55
PROVIDERS: ATTEND Obstetrics & Gynecology
DX: Z12.4 Encounter for screening for malignant neoplasm of cervix (principal); N93.9 Abnormal uterine and vaginal bleeding, unspecified; Z77.9 Other contact with and (suspected) exposures hazardous to health

== ENCOUNTER → 2020-09-08 | Outpatient (CLI) | payer OTHER ==
[~2020-09-08] MED LIST changes: +ALPR0.5T3 PO; +DOK1CAP7 PO; +IBUP80TA PO; +PERCOCET PO
== END ==
LOC: M LABSMTC 09:37
PROVIDERS: ATTEND Anesthesiology
DX: Z20.828 Contact with and (suspected) exposure to other viral communicable diseases (principal); Z11.59 Encounter for screening for other viral diseases

== ENCOUNTER 2020-09-12 09:33 | Day surgery (SDC) | payer OTHER ==
[~2020-09-12] VITALS: Ht 162.6 cm; Wt 56.6 kg
[~2020-09-12 09:33] MED LIST changes: -DOK1CAP7 PO; -IBUP80TA PO; +LIDOCAINE 1% MDV 20ML VIAL SQ PRN; +LIDOCAINE 2% 100MG/5ML SDV (FOR ANES.) As Ordered ONE; +LR 1,000 ML IV ONE; +MIDAZOLAM INJ 2MG/2ML VIAL (J2250 PER 1MG) As Ordered ONE; -PERCOCET PO; +ROCURONIUM BROMIDE 50 MG/5 ML VIAL As Ordered ONE; +SCOPOLAMINE 1MG TRANSDERMAL PATCH TOP ONE; +ceFAZolin SOD 2 GM in IV 1 EA IV ONE; +fentaNYL 250 MCG/5 ML INJECTION (J3010) As Ordered ONE; +propofoL 200 MG/20 ML VIAL As Ordered ONE
[2020-09-12 10:06] LABS: HEMATOCRIT 43.6 % (36.0-47.0); HEMOGLOBIN 14.2 g/dl (12.0-15.5); MEAN CORPUSCULAR HEMOGLOBIN 30.3 pg (27.0-33.0); MEAN CORPUSCULAR HGB CONC 32.6 g/dl (32.0-36.5); PLATELET COUNT, AUTOMATED 240 10^3/uL (150-450); RED BLOOD COUNT 4.69 10^6/uL (4.00-5.40); WHITE BLOOD COUNT 9.5 10^3/uL (4.0-10.0)
[2020-09-12 10:43] LABS: HCG, SERUM QUALITATIVE NEGATIVE (NEGATIVE)
[2020-09-12] MEDS ORDERED: METHYLENE BLUE 0.5% (5MG/ML) 10 ML AMP (PROVAYBLUE) As Ordered ONE (10:57)
[2020-09-12] MEDS ORDERED: BUPIVACAINE HCL 0.25% 30ML VIAL As Ordered ONE (10:57)
[2020-09-12] MEDS ORDERED: dexameTHASONE 4 MG/ML 1ML VIAL (J1100 PER 1MG) As Ordered ONE (11:28)
[2020-09-12] MEDS ORDERED: ACETAMINOPHEN 1000MG 100ML IV BTL (OFIRMEV) (J0131 PER 10MG) As Ordered ONE (11:39)
[2020-09-12] MEDS ORDERED: HYDROmorphone HCL 2 MG/ML 1ML VIAL (J1170) As Ordered ONE (11:48)
[2020-09-12] MEDS ORDERED: KETOROLAC 60MG 2ML VIAL As Ordered ONE (11:48)
[2020-09-12] MEDS ORDERED: ONDANSETRON 4MG/2ML VIAL As Ordered ONE (11:48)
[2020-09-12] MEDS ORDERED: SUGAMMADEX SODIUM 500 MG/5 ML VIAL (BRIDION) As Ordered ONE (11:48)
[2020-09-12] MEDS ORDERED: METOCLOPRAMIDE INJ 10MG/2ML VIAL (J2765 PER 1) As Ordered ONE (11:48)
[2020-09-12] MEDS ORDERED: ROCURONIUM BROMIDE 50 MG/5 ML VIAL As Ordered ONE (12:09)
[2020-09-12] MEDS ORDERED: PERCOCET 5MG/325MG TAB PO PRN ×2 (13:00)
[2020-09-12] MEDS ORDERED: ONDANSETRON 4MG/2ML VIAL IV PRN ×2 (13:00→13:30)
[2020-09-12] MEDS ORDERED: LR 1,000 ML IV SCH ×2 (13:00→13:30)
--- NOTE | 2020-09-12 13:02 | ROOPDOC ---
[facility] Report Of Operation Report of Operation DATE OF PROCEDURE: 09/12/2020 PREPROCEDURE DIAGNOSES: Abnormal uterine bleeding, chronic pelvic pain. POSTPROCEDURE DIAGNOSES: Same. PROCEDURE: Robotic-assisted total laparoscopic hysterectomy, cystoscopy SURGEON: Neo Busby D.O. [employer]ACOG [employer]W ATTENDANT: Es Montilla ANESTHESIA: General endotracheal. ESTIMATED BLOOD LOSS: Approximately 20 mL. FLUIDS REPLACED: 1000 mL LR URINE OUTPUT: 250 mL COMPLICATIONS: None. FINDINGS: Normal-appearing ovaries bilaterally. Surgically absent fallopian tubes. Uterus was approximately 8 centimeters in greatest dimension. Cystoscopy: Bilateral ureteral orifice efflux, no bladder injury/suture material. PREOPERATIVE ANTIBIOTIC PROPHYLAXIS: Ancef 2 g IV 1. SPECIMEN(S): Uterus w/ cervix DESCRIPTION OF PROCEDURE: The patient was counseled, consented on the respective benefits, indications, alternatives of procedure. Informed consent was obtained. She was taken to the operating room with an IV running. She was placed on the operating table in dorsal supine position. Gen. anesthesia was administered and the airway was secured without any difficulty. She was placed in the low lithotomy position. . She was prepared and draped in the normal sterile fashion. A time out was performed per protocol. A Askew catheter was placed under sterile conditions. A sterile speculum was placed resulting in good visualization of the cervix. A single-tooth tenaculum was used to grasp the anterior lip cervix. The cervix was sequentially dilated with Marques dilators. A V-Care uterine manipulator was placed without any difficulty. The single-tooth tenaculum was removed, as well as the speculum. A sterile glove switch was performed. Attention was turned to the abdomen. A 2mm incision was made in the umbilicus, and through this incision a Veress needle was inserted into the intraperitoneal cavity. Intraperitoneal placement was confirmed with ease of flow of normal saline, positive drop test, no return on aspiration, and an opening pressure of less than 10 mmHg upon initial insufflation. The abdomen was insufflated with 2 L of gas. The Veress needle was removed. A supraumbilical 8 mm incision was made. Through this incision, the robotic trochar/cannula was inserted into the intraperitoneal cavity under direct visualization. No incidental bleeding nor injury was noted. Patient was placed in 30 Trendelenburg. The right and left trocars/cannulas were placed on both the right and left side through 8 mm incisions, guided by laparoscopic visualization. No incidental bleeding nor injury was noted. The robot was docked in typical fashion. The instruments were inserted, guided by laparoscopic visualization. My attention was turned to the robotic console. Using the vessel sealer device,the right utero-ovarian ligament and right round ligament were sequentially clamped, coagulated and transected with the vessel sealer device. The vesicouterine peritoneum was dissected with the vessel sealer device to create the bladder flap, thus mobilizing the lower uterine segment and cervix off of the bladder. The right uterine vasculature was sequentially clamped, coagulated and transected above the colpotomy cup. The left utero-ovarian ligament and left round ligament were sequentially clamped, coagulated and transected with the vessel sealer device. The remainder of the bladder flap was dissected using the vessel sealer device and blunt dissection. The left uterine vasculature was sequentially clamped, coagulated and transected above the colpotomy cup. The outline of the entire V- care colpotomy cup was able to be delineated. Excellent blanching of the uterus was noted. A circumferential colpotomy was performed using the da Brian monopolar angel, following the contour of the cup. The amputated cervix and uterus were brought through the colpotomy into and out of the vagina, intact as one unit. The colpotomy was closed with the V-lock barbed suture in running fashion, thus creating the vaginal cuff. Excellent hemostasis was noted throughout the steps above. Benny was placed over the vaginal cuff to ensure hemostasis. The instruments were removed from the abdomen and the robot was un-docked. The gas was released from the abdomen and the patient was taken out of Trendelenburg. I re-scrubbed, and attention was turned to the pelvis. The Askew catheter was removed. The cystoscope was placed transurethrally into the bladder and normal saline was instilled. No bladder injury/suture material was noted. IV methylene blue had been administered by anesthesia and bilateral UO efflux was confirmed. The fluid was drained out of the bladder through the cystoscope device, then the cystoscope was removed. The vagina was copiously irrigated. A sterile digital vaginal exam revealed no significant bleeding and an intact vaginal cuff. A sterile glove switch was performed. The da Brian cannulas were removed. The skin incisions were closed with 4-0 Monocryl in subcuticular fashion. Sponge, needle and instrument counts were correct per protocol. The patient tolerated the entire procedure very well. She was transferred to the PACU in good and stable condition. DO FABIOLA Melendez JONATHAN R. DO Sep 12, 2020 13:02
[2020-09-12] MEDS ORDERED: IBUP80TA PO (13:03)
[2020-09-12] MEDS ORDERED: DOK1CAP7 PO (13:03)
[2020-09-12] MEDS ORDERED: PERCOCET PO (13:03)
[2020-09-12] MEDS ORDERED: MEPERIDINE INJ 25 MG/ML VIAL (J2175) IV PRN (13:30)
[2020-09-12] MEDS ORDERED: METOCLOPRAMIDE INJ 10MG/2ML VIAL (J2765 PER 1) IV PRN (13:30)
[2020-09-12] MEDS ORDERED: fentaNYL 100 MCG/2 ML INJECTION (J3010) IV PRN (13:30)
[2020-09-12] MEDS ORDERED: oxyCODONE 5MG TAB PO PRN (13:30)
[2020-09-12 14:15] VITALS: BP 110/65
[2020-09-12 14:45] VITALS: BP 110/65
[2020-09-12 15:45] VITALS: BP 99/55
[2020-09-12 16:45] VITALS: BP 116/63
[2020-09-12 17:45] VITALS: BP 116/63
[2020-09-12] MEDS ORDERED: KETOROLAC 30 MG/ML 1ML VIAL IV SCH (18:00)
[2020-09-12 18:45] VITALS: BP 114/63
[2020-09-12] MEDS ORDERED: DOCUSATE SODIUM 100MG CAPSULE PO SCH (21:00)
[2020-09-13] MEDS ORDERED: IBUPROFEN 800 MG TAB PO SCH (14:00)
== END 2020-09-12 19:30 | disposition home or self-care (01) ==
LOC: M SDC 09:33 → M MS5PR 14:15 → M SDC 19:30
PROVIDERS: ATTEND Obstetrics & Gynecology
DX: N93.9 Abnormal uterine and vaginal bleeding, unspecified (principal); N72 Inflammatory disease of cervix uteri; N80.0 Endometriosis of uterus; F41.9 Anxiety disorder, unspecified; Z79.899 Other long term (current) drug therapy
CPT/HCPCS: 36415; 58570; 84703; 85027; 86850; 86900; 86901; 88307; 96361; 96374; J0131; J0690; J1100; J1170; J1885; J2250; J2405; J2765; J3010; Q9968; S2900

== ENCOUNTER 2020-09-24 20:43 | Emergency (ER) | payer OTHER ==
[~2020-09-24] VITALS: Ht 162.6 cm; Wt 67.6 kg
[~2020-09-24 20:43] MED LIST changes: +DOK1CAP7 PO; +IBUP80TA PO; -LIDOCAINE 1% MDV 20ML VIAL SQ PRN; -LIDOCAINE 2% 100MG/5ML SDV (FOR ANES.) As Ordered ONE; -LR 1,000 ML IV ONE; -MIDAZOLAM INJ 2MG/2ML VIAL (J2250 PER 1MG) As Ordered ONE; +PERCOCET PO; -ROCURONIUM BROMIDE 50 MG/5 ML VIAL As Ordered ONE; -SCOPOLAMINE 1MG TRANSDERMAL PATCH TOP ONE; -ceFAZolin SOD 2 GM in IV 1 EA IV ONE; -fentaNYL 250 MCG/5 ML INJECTION (J3010) As Ordered ONE; -propofoL 200 MG/20 ML VIAL As Ordered ONE
--- NOTE | 2020-09-24 20:58 | ED PDOC ---
Post-Departure Follow-Up pt seen by Dr Gu, NEON GLASS BENDER upon arrival not by ED provider CAROLIN AMAYA FOREPART LASTER Sep 24, 2020 20:58
[2020-09-24 21:32] LABS: HEMATOCRIT 39.1 % (36.0-47.0); HEMOGLOBIN 13.2 g/dl (12.0-15.5); MEAN CORPUSCULAR HGB CONC 33.8 g/dl (32.0-36.5); MEAN CORPUSCULAR VOLUME 91.8 fl (80.0-96.0); PLATELET COUNT, AUTOMATED 295 10^3/uL (150-450); RED BLOOD COUNT 4.26 10^6/uL (4.00-5.40); WHITE BLOOD COUNT 11.2 10^3/uL (4.0-10.0)
[2020-09-24 21:53] LABS: ATYPICAL LYMPH 5 % (0-5); EOSINOPHILS 1 % (0-3); LYMPHOCYTES 38 % (16-44); MONOCYTES 1 % (0-5); NEUTROPHILS 55 % (28-66); PLATELET ESTIMATE NORMAL (NORMAL)
[2020-09-24 22:15] VITALS: BP 120/70
--- NOTE | 2020-09-24 22:15 | CR.PDOC ---
General Date of Consultation: Sep 24, 2020 Consultation REASON FOR CONSULTATION/CHIEF COMPLAINT: vaginal bleeding HISTORY OF PRESENT ILLNESS: 29 yo s/p RALH 09/12/2020 presents with sudden onset of heavy vaginal bleeding, clots. No significant pain. She was told to come to the ER for evaluation. ALLERGIES: Please see below. HOME MEDICATIONS: Please see below. PAST MEDICAL HISTORY: non-contributory PAST SURGICAL HISTORY: 1. RALH 09/12/2020 2. LEEP of cervix 3. Laparoscopic tubal ligation 04/2020 . PHYSICAL EXAMINATION: VITAL SIGNS: Please see below. GENERAL APPEARANCE: NAD HEENT: WNL. RESPIRATORY: CTA CARDIOVASCULAR: RRR ABDOMEN: nt, soft, I C/D. SVE: vaginal cuff intact, small amount of bleeding from right corner of cuff. Monsel's Solution and pressure applied. No active bleeding after exam. EXTREMITIES: no edema. LABORATORY DATA: Please see below. ASSESSMENT/PLAN: vagainal bleeding s/p hysterectomy 1. discharge home 2. pelvic rest, limit activity 3. f-u office 09/27/20 Vital Signs/I&O Vital Signs Date Time Temp Pulse Resp B/P (MAP) Pulse Ox O2 Delivery O2 Flow Rate FiO2 09/24/20 22:00 122/73 (89) 09/24/20 21:58 69 16 100 Room Air 09/24/20 20:44 97.6 Laboratory Data Labs 24H Laboratory Tests 2 09/24/20 21:19: Neutrophils (%) (Auto) , Nucleated Red Blood Cells % (auto) 0.0, Neutrophils 55, Lymphocytes (Manual) 38, Monocytes (Manual) 1, Eosinophils (Manual) 1, Atypical Lymphocytes 5, Red Blood Cell Morphology NORMAL, Platelet Estimate NORMAL CBC/BMP Laboratory Tests 09/24/20 21:19 Allergies Coded Allergies: No Known Allergies (Unverified , 05/20/20) Home Medications Scheduled Ibuprofen (Ibuprofen) 800 Mg Tablet, 800 MG PO Q8H, #30 Scheduled PRN Alprazolam (Alprazolam) 0.5 Mg Tablet, 0.5 MG PO DAILYPRN PRN for anxiety, (Reported) MARIBEL RIOJAS MD Sep 24, 2020 22:15
== END 2020-09-24 22:14 | disposition home or self-care (01) ==
LOC: M ED 20:43
DX: N99.820 Postprocedural hemorrhage of a genitourinary system organ or structure following a genitourinary system procedure (principal)

== ENCOUNTER → 2020-11-21 | Outpatient (CLI) | payer OTHER ==
[2020-11-21 09:03] LABS: HEMATOCRIT 42.3 % (36.0-47.0); HEMOGLOBIN 14.1 g/dl (12.0-15.5); MEAN CORPUSCULAR HEMOGLOBIN 31.3 pg (27.0-33.0); MEAN CORPUSCULAR HGB CONC 33.3 g/dl (32.0-36.5); MEAN CORPUSCULAR VOLUME 93.8 fl (80.0-96.0); PLATELET COUNT, AUTOMATED 273 10^3/uL (150-450); RED BLOOD COUNT 4.51 10^6/uL (4.00-5.40); WHITE BLOOD COUNT 8.2 10^3/uL (4.0-10.0)
[2020-11-21 09:18] LABS: INR 0.94; PROTHROMBIN TIME 12.8 SECONDS (12.5-14.3)
[2020-11-21 09:23] LABS: ERYTHROCYTE SEDIMENTATION RATE 1 mm/hr (0-20)
[2020-11-21 09:37] LABS: ALBUMIN 4.1 GM/DL (3.2-5.2); ALT/SGPT 19 U/L (12-78); BILIRUBIN,TOTAL 0.6 MG/DL (0.2-1.0); BLOOD UREA NITROGEN 7 MG/DL (7-18); CALCIUM LEVEL 9.4 MG/DL (8.5-10.1); CARBON DIOXIDE LEVEL 27 MEQ/L (21-32); CHLORIDE LEVEL 110 MEQ/L (98-107); CHOLESTEROL LEVEL 122 MG/DL (<200); CHOLESTEROL RISK RATIO 1.768 (<5); CREATININE FOR GFR 0.52 MG/DL (0.55-1.30); GLOMERULAR FILTRATION RATE > 60.0 (>60); GLUCOSE, FASTING 88 MG/DL (70-100); HDL CHOLESTEROL 69 MG/DL (>40); LDL CHOLESTEROL 39 MG/DL (<100); NON-HDL-C 53 MG/DL; POTASSIUM SERUM 4.5 MEQ/L (3.5-5.1); RHEUMATOID FACTOR QUANT < 10.0 IU/ML (<15.0); SODIUM LEVEL 140 MEQ/L (136-145); THYROID STIMULATING HORMONE 0.598 uIU/ML (0.358-3.740); TOTAL PROTEIN 7.2 GM/DL (6.4-8.2); TRIGLYCERIDES LEVEL 69 MG/DL (<150)
--- NOTE | 2020-11-21 09:51 | REP ---
INDICATION: ANEMIA- [facility]S [facility]. COMPARISON: Comparison chest x-ray September 05, 2017. TECHNIQUE: Two views.. FINDINGS: The lungs are well inflated and free of infiltrate. The pleural angles are sharp. The heart size is normal. Pulmonary vasculature is not increased. No significant bony abnormality is seen. There is a mild to moderate pectus excavatum deformity. IMPRESSION: No active disease.. <Electronically signed by Boby Collins > 11/21/20 0942
[2020-11-21 10:02] LABS: HEMOGLOBIN A1c 4.9 %
[2020-11-22 15:08] LABS: ANTINUCLEAR ANTIBODIES DIRECT Negative (Negative)
== END ==
LOC: M LAB 08:13
PROVIDERS: ATTEND Family Medicine
DX: D64.9 Anemia, unspecified (principal)

== ENCOUNTER → 2021-04-14 | Outpatient (REF) | payer OTHER ==
[~2021-04-14] MED LIST changes: +DOK1CAP4 PO; -DOK1CAP7 PO
== END ==
LOC: M LAB REF 15:04
PROVIDERS: ATTEND Surgery
DX: L72.3 Sebaceous cyst (principal)

== ENCOUNTER → 2021-05-13 | Outpatient (CLI) | payer OTHER ==
[2021-05-13 09:39] LABS: HEMATOCRIT 41.2 % (36.0-47.0); HEMOGLOBIN 13.5 g/dl (12.0-15.5); MEAN CORPUSCULAR HEMOGLOBIN 30.8 pg (27.0-33.0); MEAN CORPUSCULAR HGB CONC 32.8 g/dl (32.0-36.5); MEAN CORPUSCULAR VOLUME 94.1 fl (80.0-96.0); PLATELET COUNT, AUTOMATED 296 10^3/uL (150-450); RED BLOOD COUNT 4.38 10^6/uL (4.00-5.40)
[2021-05-13 10:05] LABS: MONO SCRN NEGATIVE (NEGATIVE)
[2021-05-13 10:13] LABS: ALBUMIN 4.1 GM/DL (3.2-5.2); ALT/SGPT 17 U/L (12-78); BILIRUBIN,TOTAL 0.2 MG/DL (0.2-1.0); BLOOD UREA NITROGEN 12 MG/DL (7-18); CALCIUM LEVEL 9.2 MG/DL (8.5-10.1); CARBON DIOXIDE LEVEL 29 MEQ/L (21-32); CHLORIDE LEVEL 107 MEQ/L (98-107); CHOLESTEROL LEVEL 115 MG/DL (<200); CHOLESTEROL RISK RATIO 1.916 (<5); CREATININE FOR GFR 0.49 MG/DL (0.55-1.30); GLOMERULAR FILTRATION RATE > 60.0 (>60); GLUCOSE, FASTING 89 MG/DL (70-100); HDL CHOLESTEROL 60 MG/DL (>40); IRON (FE) 59 UG/DL (50-170); LDL CHOLESTEROL 40 MG/DL (<100); NON-HDL-C 55 MG/DL; PERCENT SATURATION 17.2 % (13.2-45.0); POTASSIUM SERUM 4.1 MEQ/L (3.5-5.1); SODIUM LEVEL 142 MEQ/L (136-145); THYROID STIMULATING HORMONE 0.605 uIU/ML (0.358-3.740); TOTAL IRON BINDING CAPACITY 343 UG/DL (250-450); TOTAL PROTEIN 7.2 GM/DL (6.4-8.2); TRIGLYCERIDES LEVEL 77 MG/DL (<150)
[2021-05-13 10:14] LABS: HEMOGLOBIN A1c 4.9 %
[2021-05-15 11:24] LABS: TOTAL 25(OH) VITAMIN D 23.8 NG/ML (30.0-100.0)
[2021-05-15 16:08] LABS: ANA (HEP2) Negative (.)
== END ==
LOC: M LAB 08:46
PROVIDERS: ATTEND Family Medicine
DX: D64.9 Anemia, unspecified (principal); R53.83 Other fatigue; E03.9 Hypothyroidism, unspecified

== ENCOUNTER → 2021-07-13 | Outpatient (CLI) | payer OTHER | LOC: M RAD 09:21 | PROVIDERS: ATTEND Family Medicine | DX: M54.30 Sciatica, unspecified side (principal) ==

== ENCOUNTER → 2021-10-15 | Outpatient (REF) | payer OTHER | LOC: M LAB REF 14:45 | PROVIDERS: ATTEND Physician Assistant Medical | DX: R30.0 Dysuria (principal) ==

== ENCOUNTER → 2021-12-12 | Outpatient (CLI) | payer OTHER | LOC: M PLAIMG 12:05 | PROVIDERS: ATTEND Physician Assistant | DX: G57.01 Lesion of sciatic nerve, right lower limb (principal) ==

== ENCOUNTER → 2022-01-21 | Outpatient (CLI) | payer OTHER ==
[2022-01-21 09:45] LABS: PLATELET COUNT, AUTOMATED 221 10^3/uL (150-450)
[2022-01-21 09:55] LABS: INR 1.01; PROTHROMBIN TIME 13.7 SECONDS (12.7-14.5)
[2022-01-21 09:56] LABS: PARTIAL THROMBOPLASTIN TIME 28.9 SECONDS (25.9-37.0)
== END ==
LOC: M LAB 09:17
PROVIDERS: ATTEND Physician Assistant
DX: M54.50 Low back pain, unspecified (principal)

== ENCOUNTER → 2022-01-26 | Outpatient (CLI) | payer OTHER ==
[~2022-01-26] MED LIST changes: +E-Z-GAS II EFFERVESCENT PACKET (SODIUM BICARB./CITRIC ACID/SIMETHICONE) As Ordered ONE; +E-Z-HD 98% w/w 340GM SUSP BTL As Ordered ONE; +E-Z-PAQUE 96% w/w SUSP 176GM BTL As Ordered ONE
== END ==
LOC: M RAD 08:45
PROVIDERS: ATTEND Family Medicine
DX: R10.9 Unspecified abdominal pain (principal); K27.9 Peptic ulcer, site unspecified, unspecified as acute or chronic, without hemorrhage or perforation

== ENCOUNTER → 2022-02-13 | Outpatient (REF) | payer OTHER ==
[~2022-02-13] MED LIST changes: -E-Z-GAS II EFFERVESCENT PACKET (SODIUM BICARB./CITRIC ACID/SIMETHICONE) As Ordered ONE; -E-Z-HD 98% w/w 340GM SUSP BTL As Ordered ONE; -E-Z-PAQUE 96% w/w SUSP 176GM BTL As Ordered ONE
[2022-02-13 18:01] LABS: BASO # 0.1 10^3/uL (0.0-0.2); BASO % 0.5 % (0.0-1.0); EOS # 0.1 10^3/uL (0.0-0.5); EOS % 0.8 % (0.0-3.0); HEMOGLOBIN 13.6 g/dl (12.0-15.5); LYMPH # 3.6 10^3/uL (1.5-5.0); LYMPH % 33.1 % (24.0-44.0); MEAN CORPUSCULAR HEMOGLOBIN 31.2 pg (27.0-33.0); MEAN CORPUSCULAR HGB CONC 33.2 g/dl (32.0-36.5); MONO # 0.8 10^3/uL (0.0-0.8); MONO % 7.1 % (2.0-8.0); NEUTROPHILS # 6.2 10^3/uL (1.5-8.5); NEUTROPHILS % 57.5 % (36.0-66.0); PLATELET COUNT, AUTOMATED 255 10^3/uL (150-450); RED BLOOD COUNT 4.36 10^6/uL (4.00-5.40); WHITE BLOOD COUNT 10.8 10^3/uL (4.0-10.0)
[2022-02-13 18:14] LABS: C REACTIVE PROTEIN QUANTITATIV 0.42 MG/DL (0.00-0.30)
[2022-02-13 18:23] LABS: TOTAL PROTEIN,RANDOM URINE 8.4 MG/DL (0.0-12.0)
[2022-02-13 19:10] LABS: APPEARANCE, URINE MANUAL CLEAR (CLEAR); COLOR, URINE MANUAL YELLOW (YELLOW)
[2022-02-13 19:12] LABS: BILIRUBIN, URINE MANUAL NEGATIVE (NEGATIVE); BLOOD URINE MANUAL POSITIVE (NEGATIVE); GLUCOSE, URINE (UA) MANUAL NEGATIVE (NEGATIVE); KETONE, URINE MANUAL NEGATIVE (NEGATIVE); LEUKOCYTE ESTERASE, URINE MAN NEGATIVE (NEGATIVE); NITRITE, URINE MANUAL NEGATIVE (NEGATIVE); PH,URINE MAN 5.5 UNITS (5.0 - 7.0); PROTEIN, URINE MANUAL NEGATIVE (NEGATIVE); SPECIFIC GRAVITY,URINE MANUAL 1.025 (1.002-1.035); UROBILINOGEN, URINE MANUAL NORMAL (NORMAL)
[2022-02-13 19:47] LABS: BACTERIA, URINE NONE SEEN; HYALINE CAST, URINE NONE SEEN /lpf (0-1); SQUAMOUS EPITHELIAL CELL URINE MOD AMOUNT /hpf (SMALL AMT); WBC, URINE NONE SEEN /hpf (0-3)
[2022-02-13 19:48] LABS: MUCUS, URINE MOD AMOUNT (NEGATIVE)
[2022-02-13 20:01] LABS: ERYTHROCYTE SEDIMENTATION RATE 3 mm/hr (0-20)
== END ==
LOC: M SFHCRHEU 14:57
PROVIDERS: ATTEND Internal Medicine
DX: L65.9 Nonscarring hair loss, unspecified (principal)

== ENCOUNTER → 2022-02-21 | Outpatient (CLI) | payer OTHER | LOC: M RAD 10:26 | PROVIDERS: ATTEND Internal Medicine | DX: M54.50 Low back pain, unspecified (principal) ==

== ENCOUNTER → 2022-03-08 | Outpatient (REF) | payer OTHER | LOC: M LAB REF 17:44 | PROVIDERS: ATTEND Surgery | DX: L72.3 Sebaceous cyst (principal) ==

== ENCOUNTER → 2022-03-15 | Outpatient (REF) | payer OTHER ==
[~2022-03-15] MED LIST changes: +AMPHETA/DEXTRO PO; +ERGO500029 PO; +OMEP-173 PO
== END ==
LOC: M LAB REF 09:02
PROVIDERS: ATTEND Internal Medicine Gastroenterology
DX: K62.5 Hemorrhage of anus and rectum (principal); R19.7 Diarrhea, unspecified

== ENCOUNTER → 2022-03-19 | Outpatient (CLI) | payer OTHER | LOC: M LABSMTC 10:40 | PROVIDERS: ATTEND Anesthesiology | DX: Z01.818 Encounter for other preprocedural examination (principal); Z11.52 Encounter for screening for COVID-19 ==

== ENCOUNTER 2022-03-21 11:30 | Day surgery (SDC) | payer OTHER ==
[~2022-03-21] VITALS: Ht 162.6 cm; Wt 513.5 kg
[2022-03-21] MEDS: NS 1,000 ML IV ONE (11:57)
[2022-03-21] MEDS ORDERED: LIDOCAINE 2% 100MG/5ML SDV (FOR ANES.) As Ordered ONE (12:23)
[2022-03-21] MEDS ORDERED: propofoL 200 MG/20 ML VIAL As Ordered ONE ×2 (12:23→12:36)
[2022-03-21 13:07] VITALS: BP 104/63
== END 2022-03-21 13:15 | disposition home or self-care (01) ==
LOC: M OPP 11:30
PROVIDERS: ATTEND Internal Medicine Gastroenterology
DX: K64.0 First degree hemorrhoids (principal); K57.30 Diverticulosis of large intestine without perforation or abscess without bleeding; K62.5 Hemorrhage of anus and rectum; R19.7 Diarrhea, unspecified; Z79.899 Other long term (current) drug therapy; F41.9 Anxiety disorder, unspecified; F90.9 Attention-deficit hyperactivity disorder, unspecified type; Z80.43 Family history of malignant neoplasm of testis; Z83.79 Family history of other diseases of the digestive system; Z87.891 Personal history of nicotine dependence

== ENCOUNTER → 2022-08-22 | Outpatient (CLI) | payer OTHER | LOC: M LAB 09:10 | PROVIDERS: ATTEND Internal Medicine | DX: R53.82 Chronic fatigue, unspecified (principal) ==

== ENCOUNTER → 2022-08-22 | Outpatient (CLI) | payer OTHER ==
[~2022-08-22] MED LIST changes: +ISOVUE-370 76% 100ML VIAL As Ordered ONE
== END ==
LOC: M RAD 09:12
PROVIDERS: ATTEND Physician Assistant
DX: H92.01 Otalgia, right ear (principal)
CPT/HCPCS: 70487; Q9967

== ENCOUNTER → 2022-11-23 | Outpatient (REF) | payer OTHER ==
[~2022-11-23] MED LIST changes: -ISOVUE-370 76% 100ML VIAL As Ordered ONE
[2022-11-23 14:11] LABS: APPEARANCE, URINE CLEAR (CLEAR); BACTERIA, URINE AUTO NEGATIVE (NEGATIVE); BILIRUBIN, URINE AUTO NEGATIVE (NEGATIVE); BLOOD, URINE BLOOD 2+ (NEGATIVE); COLOR, URINE STRAW (YELLOW); GLUCOSE, URINE (UA) AUTO NEGATIVE (NEGATIVE); KETONE, URINE AUTO NEGATIVE (NEGATIVE); LEUKOCYTE ESTERASE, URINE AUTO NEGATIVE (NEGATIVE); NITRITE, URINE AUTO NEGATIVE (NEGATIVE); PROTEIN, URINE AUTO NEGATIVE (NEGATIVE); RBC, URINE AUTO 1 /HPF (0-3); SPECIFIC GRAVITY URINE AUTO 1.009 (1.002-1.035); SQUAMOUS EPITHELIAL CELL UR AU 2 /HPF (0-6); UROBILINOGEN, URINE AUTO 0.2 mg/dL (0.0-2.0); WBC, URINE AUTO 0 /HPF (0-3)
== END ==
LOC: M SMT 13:11
PROVIDERS: ATTEND Specialist
DX: N30.10 Interstitial cystitis (chronic) without hematuria (principal)

== ENCOUNTER 2022-11-29 09:41 | Emergency (ER) | payer OTHER ==
[~2022-11-29] VITALS: Ht 162.6 cm; Wt 56.8 kg
[2022-11-29 09:43] VITALS: TEMP 97.8
[2022-11-29] MEDS ORDERED: PENT10CA (09:50)
[2022-11-29] MEDS ORDERED: PHEN1TAB73 (09:50)
[2022-11-29] MEDS ORDERED: DEXTROAMP-AMPHETAMIN (09:50)
[2022-11-29] MEDS ORDERED: KETOROLAC 30 MG/ML 1ML VIAL IV ONE (13:20)
[2022-11-29] MEDS ORDERED: KETOROLAC 30 MG/ML 1ML VIAL IM ONE (13:35)
[2022-11-29 14:01] VITALS: BP 110/62; O2SAT 100
== END 2022-11-29 14:01 | disposition home or self-care (01) ==
LOC: M ED 09:41
DX: S93.492A Sprain of other ligament of left ankle, initial encounter (principal); W10.8XXA Fall (on) (from) other stairs and steps, initial encounter; Y92.009 Unspecified place in unspecified non-institutional (private) residence as the place of occurrence of the external cause; Z87.891 Personal history of nicotine dependence; Z79.899 Other long term (current) drug therapy
CPT/HCPCS: 73610; 73630; 96372; 99284; J1885

== ENCOUNTER → 2022-12-14 | Outpatient (CLI) | payer OTHER ==
[~2022-12-14] MED LIST changes: +DEXTROAMP-AMPHETAMIN; +PENT10CA; +PHEN1TAB73
== END ==
LOC: M PLAIMG 10:39
PROVIDERS: ATTEND Physician Assistant
DX: M79.672 Pain in left foot (principal)

== ENCOUNTER → 2022-12-31 | Outpatient (CLI) | payer OTHER | LOC: M RAD 07:38 | PROVIDERS: ATTEND Physician Assistant | DX: S99.922A Unspecified injury of left foot, initial encounter (principal); M79.672 Pain in left foot; R22.42 Localized swelling, mass and lump, left lower limb; Y93.9 Activity, unspecified; Y92.9 Unspecified place or not applicable ==

== ENCOUNTER → 2023-04-06 | Outpatient (CLI) | payer OTHER | LOC: M RAD 10:35 | PROVIDERS: ATTEND Physician Assistant | DX: M51.16 Intervertebral disc disorders with radiculopathy, lumbar region (principal) ==

== ENCOUNTER → 2023-09-03 | Outpatient (REF) | payer OTHER | LOC: M SFHCDERM 16:15 | PROVIDERS: ATTEND Physician Assistant | DX: L29.9 Pruritus, unspecified (principal) ==

== ENCOUNTER → 2023-09-03 | Outpatient (CLI) | payer OTHER ==
[2023-09-03 15:56] LABS: BASO # 0.1 10^3/uL (0.0-0.2); BASO % 0.5 % (0.0-1.0); EOS # 0.3 10^3/uL (0.0-0.5); EOS % 2.8 % (0.0-3.0); HEMATOCRIT 40.8 % (36.0-47.0); HEMOGLOBIN 13.7 g/dl (12.0-15.5); LYMPH # 3.9 10^3/uL (1.5-5.0); LYMPH % 34.8 % (24.0-44.0); MEAN CORPUSCULAR HEMOGLOBIN 30.9 pg (27.0-33.0); MEAN CORPUSCULAR HGB CONC 33.6 g/dl (32.0-36.5); MEAN CORPUSCULAR VOLUME 92.1 fl (80.0-96.0); MONO # 0.9 10^3/uL (0.0-0.8); MONO % 7.7 % (2.0-8.0); NEUTROPHILS % 53.9 % (36.0-66.0); PLATELET COUNT, AUTOMATED 293 10^3/uL (150-450); RED BLOOD COUNT 4.43 10^6/uL (4.00-5.40); WHITE BLOOD COUNT 11.1 10^3/uL (4.0-10.0)
[2023-09-03 16:25] LABS: FREE T4 1.03 NG/DL (0.89-1.76); PROLACTIN 10.85 NG/ML
[2023-09-03 16:26] LABS: THYROID STIMULATING HORMONE 1.602 uIU/ML (0.55-4.78)
[2023-09-03 16:58] LABS: ALBUMIN 4.2 G/DL (3.2-5.2); ALKALINE PHOSPHATASE 80 U/L (46-116); ALT/SGPT 18 U/L (7.0-40); AST/SGOT 9 U/L (<34); BILIRUBIN,TOTAL 0.4 MG/DL (0.3-1.2); BLOOD UREA NITROGEN 15 MG/DL (9-23); CALCIUM LEVEL 9.4 MG/DL (8.5-10.1); CARBON DIOXIDE LEVEL 30 MMOL/L (20-31); CHLORIDE LEVEL 106 MMOL/L (98-107); CREATININE FOR GFR 0.63 MG/DL (0.55-1.30); GLOMERULAR FILTRATION RATE > 60.0 (>60); GLUCOSE, FASTING 86 MG/DL (60-100); POTASSIUM SERUM 3.8 MMOL/L (3.5-5.1); SODIUM LEVEL 143 MMOL/L (136-145); TOTAL PROTEIN 6.9 G/DL (5.7-8.2)
== END ==
LOC: M LAB 15:05
PROVIDERS: ATTEND Physician Assistant
DX: L29.9 Pruritus, unspecified (principal)

== ENCOUNTER → 2023-10-16 | Outpatient (CLI) | payer OTHER | LOC: M WHC 09:32 | PROVIDERS: ATTEND Nurse Practitioner Family | DX: N63.24 Unspecified lump in the left breast, lower inner quadrant (principal) ==

== ENCOUNTER → 2023-11-04 | Outpatient (CLI) | payer OTHER | LOC: M WUC 12:36 | PROVIDERS: ATTEND Student in an Organized Health Care Education/Training Program | DX: M79.672 Pain in left foot (principal) ==

== ENCOUNTER → 2024-03-12 | Outpatient (REF) | payer OTHER | LOC: M LAB REF 17:29 | PROVIDERS: ATTEND Otolaryngology | DX: R68.2 Dry mouth, unspecified (principal) ==

== ENCOUNTER → 2024-06-19 | Outpatient (CLI) | payer OTHER ==
[~2024-06-19] MED LIST changes: +ISOVUE-370 76% 100ML VIAL As Ordered ONE
[2024-06-19 09:47] LABS: BASO # 0.1 10^3/uL (0.0-0.2); BASO % 0.6 % (0.0-1.0); EOS # 0.2 10^3/uL (0.0-0.5); EOS % 1.7 % (0.0-3.0); HEMOGLOBIN 13.2 g/dl (12.0-15.5); LYMPH # 3.6 10^3/uL (1.5-5.0); LYMPH % 41.1 % (24.0-44.0); MEAN CORPUSCULAR HGB CONC 34.7 g/dl (32.0-36.5); MEAN CORPUSCULAR VOLUME 89.2 fl (80.0-96.0); MONO # 0.7 10^3/uL (0.0-0.8); NEUTROPHILS # 4.2 10^3/uL (1.5-8.5); NEUTROPHILS % 48.4 % (36.0-66.0); PLATELET COUNT, AUTOMATED 290 10^3/uL (150-450); RED BLOOD COUNT 4.26 10^6/uL (4.00-5.40); WHITE BLOOD COUNT 8.7 10^3/uL (4.0-10.0)
[2024-06-19 10:13] LABS: PERCENT SATURATION 16.3 % (13.2-45.0)
[2024-06-19 10:15] LABS: FERRITIN 156.1 NG/ML (7.3-270.7)
[2024-06-19 10:47] LABS: FOLATE 18.7 NG/ML (>5.4)
== END ==
LOC: M RAD 08:37
PROVIDERS: ATTEND Nurse Practitioner Family
DX: K62.5 Hemorrhage of anus and rectum (principal); R10.32 Left lower quadrant pain; R19.7 Diarrhea, unspecified
CPT/HCPCS: 36415; 74177; 82607; 82728; 82746; 83550; 85025; Q9967

== ENCOUNTER 2024-07-26 09:23 | Emergency (ER) | payer OTHER ==
[~2024-07-26] VITALS: Ht 162.6 cm; Wt 56.8 kg
[~2024-07-26 09:23] MED LIST changes: -ISOVUE-370 76% 100ML VIAL As Ordered ONE
[2024-07-26 09:26] VITALS: BP 116/57; TEMP 98.7; O2SAT 100
[2024-07-26] MEDS ORDERED: ECOT81TA5 PO (09:32)
[2024-07-26] MEDS ORDERED: ONDA-282 PO (09:32)
[2024-07-26] MEDS ORDERED: HYDR-4571 PO (09:32)
[2024-07-26] MEDS: diphenhydrAMINE 25MG CAP PO ONE (12:13)
[2024-07-26] MEDS: FAMOTIDINE 20 MG TAB PO ONE (12:13)
[2024-07-26] MEDS: HYDROCORTISONE 1% CREAM 30GM TOP ONE (13:15)
== END 2024-07-26 13:24 | disposition home or self-care (01) ==
LOC: M ED 09:23
DX: L25.9 Unspecified contact dermatitis, unspecified cause (principal); K21.9 Gastro-esophageal reflux disease without esophagitis; Z79.82 Long term (current) use of aspirin; Z79.83 Long term (current) use of bisphosphonates; Z79.899 Other long term (current) drug therapy

== ENCOUNTER → 2024-07-28 | Outpatient (CLI) | payer OTHER ==
[~2024-07-28] MED LIST changes: +ECOT81TA5 PO; +HYDR-4571 PO; +ONDA-282 PO
[2024-07-28 10:42] LABS: BASO % 0.4 % (0.0-1.0); EOS # 0.4 10^3/uL (0.0-0.5); EOS % 4.2 % (0.0-3.0); HEMATOCRIT 40.1 % (36.0-47.0); HEMOGLOBIN 13.3 g/dl (12.0-15.5); LYMPH # 3.1 10^3/uL (1.5-5.0); LYMPH % 34.6 % (24.0-44.0); MEAN CORPUSCULAR HEMOGLOBIN 30.4 pg (27.0-33.0); MEAN CORPUSCULAR HGB CONC 33.2 g/dl (32.0-36.5); MEAN CORPUSCULAR VOLUME 91.6 fl (80.0-96.0); MONO # 0.7 10^3/uL (0.0-0.8); MONO % 7.5 % (2.0-8.0); NEUTROPHILS # 4.8 10^3/uL (1.5-8.5); NEUTROPHILS % 52.9 % (36.0-66.0); PLATELET COUNT, AUTOMATED 361 10^3/uL (150-450); RED BLOOD COUNT 4.38 10^6/uL (4.00-5.40)
[2024-07-28 11:07] LABS: TOTAL 25(OH) VITAMIN D 29.5 NG/ML (20.0-100.0)
[2024-07-28 11:16] LABS: PROCALCITONIN 0.04 ng/ml
== END ==
LOC: M LAB 09:27
PROVIDERS: ATTEND Nurse Practitioner Family
DX: K62.5 Hemorrhage of anus and rectum (principal); R19.7 Diarrhea, unspecified; L25.9 Unspecified contact dermatitis, unspecified cause

== ENCOUNTER → 2024-09-16 | Outpatient (CLI) | payer OTHER | LOC: M RAD 13:35 | PROVIDERS: ATTEND Nurse Practitioner Family | DX: N83.202 Unspecified ovarian cyst, left side (principal) ==

== ENCOUNTER → 2025-01-07 | Outpatient (CLI) | payer OTHER ==
[2025-01-07 15:47] LABS: PLATELET COUNT, AUTOMATED 283 10^3/uL (150-450)
[2025-01-07 16:13] LABS: LUTEINIZING HORMONE 7.4 mIU/ML
[2025-01-07 16:14] LABS: ESTRADIOL 120.8 PG/ML; PROLACTIN 8.42 NG/ML
== END ==
LOC: M PLALAB 13:18
PROVIDERS: ATTEND Obstetrics & Gynecology
DX: R53.83 Other fatigue (principal)

== ENCOUNTER → 2025-02-10 | Outpatient (CLI) | payer OTHER ==
[~2025-02-10] MED LIST changes: -IBUP-1022 PO; +IBUP600T42 PO
[2025-02-10 15:14] LABS: BASO # 0.0 10^3/uL (0.0-0.2); BASO % 0.5 % (0.0-1.0); EOS # 0.1 10^3/uL (0.0-0.5); EOS % 1.2 % (0.0-3.0); LYMPH # 2.9 10^3/uL (1.5-5.0); LYMPH % 37.4 % (24.0-44.0); MONO # 0.7 10^3/uL (0.0-0.8); MONO % 8.4 % (2.0-8.0); NEUTROPHILS # 4.0 10^3/uL (1.5-8.5); NEUTROPHILS % 52.1 % (36.0-66.0); PLATELET COUNT, AUTOMATED 270 10^3/uL (150-450)
[2025-02-10 15:28] LABS: ERYTHROCYTE SEDIMENTATION RATE < 1 mm/hr (0-20)
[2025-02-10 15:38] LABS: C REACTIVE PROTEIN QUANTITATIV < 0.50 MG/DL (<1.0)
[2025-02-10 15:43] LABS: ALT/SGPT 14 U/L (7.0-40); AST/SGOT 13 U/L (<34); CALCIUM LEVEL 9.6 MG/DL (8.5-10.1); CARBON DIOXIDE LEVEL 30 MMOL/L (20-31); CHLORIDE LEVEL 103 MMOL/L (98-107); CREATININE FOR GFR 0.83 MG/DL (0.55-1.30); GLOMERULAR FILTRATION RATE > 90.0 (>60); POTASSIUM SERUM 4.7 MMOL/L (3.5-5.1); SODIUM LEVEL 142 MMOL/L (136-145)
[2025-02-10 15:59] LABS: RHEUMATOID FACTOR QUANT 9.8 IU/ML (<14)
[2025-02-17 12:33] LABS: HLA-B27 Negative (Negative)
== END ==
LOC: M PLALAB 11:19
PROVIDERS: ATTEND Nurse Practitioner Family
DX: M25.50 Pain in unspecified joint (principal)